=== PATIENT | male | born 1950 | race Caucasian/White ===

== ENCOUNTER 2019-10-10 13:25 | Outpatient (CLI) | payer MEDICARE, SELFPAY ==
--- NOTE | 2019-10-10 13:35 | XR_ITS ---
WS: [id number] PROCEDURE: XR chest 2V* [id number] CLINICAL INFORMATION: DYSPNEA COMPARISON: None. FINDINGS: Heart: Cardiomegaly. Lungs: Lungs are clear. No consolidation or pleural fluid. Moderate chronic emphysematous changes. Bones: Mild thoracic kyphosis. Hypertrophic changes thoracic spine. XR/XR chest 2V* [id number] IMPRESSION: Cardiomegaly. No acute infiltrates.
== END 2019-10-10 13:26 | disposition home or self-care (01) ==
PROVIDERS: Family Provider Nurse Practitioner Family; PCP Family Medicine; Visit Provider Nurse Practitioner Family
DX: R06.00 Dyspnea, unspecified (principal); I51.7 Cardiomegaly
CPT/HCPCS: 71046

== ENCOUNTER 2019-10-11 09:15 | Observation (INO) | payer MEDICARE, SELFPAY ==
[2019-10-11] VITALS (10 sets, daily range): BP systolic 114–157; BP diastolic 60–79; PULSE 58–80; RESP 16–24; TEMP 36.4–36.9; O2SAT 93–98; BMI 43.7
--- NOTE | 2019-10-11 09:41 | ECG_ITS ---
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 Measurements Intervals [place] Rate: 65 P: 6 RI: 181 QRS: 67 QRSD: 105 T: 73 QT: 439 QTc: 458 Interpretive Statements SINUS RHYTHM No previous ECG available for comparison Generalized reality repolarization changes Electronically Signed On 10-11-2019 20:32:04 CDT by Jan Jensen M.D. [id number]
--- NOTE | 2019-10-11 09:42 | XR_ITS ---
WS: [id number] PORTABLE CHEST HISTORY: dyspnea/cough COMPARISON: 10/10/2019 Lungs are clear and well expanded. No pleural effusion or pneumothorax. Cardiac size: Normal. Mediastinum/Aorta: Normal mediastinum. No osseous abnormality seen. XR/XR chest 1V portable [id number] IMPRESSION: Unremarkable portable chest.
[2019-10-11 09:54] LABS: Basophils % 0.5 %; Eosinophils # 0.2 10^3/uL (0.0-0.8); Eosinophils % 2.5 %; Hematocrit 31.3 % (42.0-52.0); Hemoglobin 11.5 g/dL (11.7-16.6); Lymphocytes # 0.7 10^3/uL (0.8-4.8); Lymphocytes % 10.8 %; Mean Corpuscular HGB Conc 36.7 g/dL (30.0-36.0); Mean Corpuscular Hemoglobin 34.1 pg (28.0-34.0); Mean Corpuscular Volume 92.9 fL (80-94); Mean Platelet Volume 8.4 fL (7.4-10.4); Monocytes # 0.7 10^3/uL (0.2-0.9); Monocytes % 11.1 %; Neutrophils # 4.68 10^3/uL (1.8-7.7); Neutrophils % 74.6 %; Nucleated Red Blood Cells % 0 %; Platelet Count 238 10^3/cmm (130-400); Red Blood Count 3.37 10^6/uL (4.1-5.3); Red Cell Distribution Width 11.8 % (12.1-15.1); White Blood Count 6.3 10^3/uL (4.0-10.0)
[2019-10-11 10:14] LABS: Troponin(5th) Baseline 22 ng/L (0-15)
[2019-10-11 10:17] LABS: Alanine Aminotransferase 29 U/L (0-41); Albumin Level 4.2 g/dL (3.5-5.2); Alkaline Phosphatase 84 IU/L (40-130); Anion Gap 14.5 (5-19); Aspartate Amino Transferase 23 U/L (0-40); Blood Urea Nitrogen 10 mg/dL (8-23); Calcium 9.5 mg/dL (8.5-10.5); Carbon Dioxide 27 mmol/L (22-29); Chloride 81 mmol/L (98-107); Globulin 2.9 g/dL (1.3-4.6); Glomerular Filtration Rate 112.8 mL/min (90-130); Glucose 127 mg/dL (65-115); NT Pro B Type Natriuretic Pept 162 pg/mL (0-125); Osmolality Calculated 246 mOsm/kg (285-295); Potassium 3.5 mmol/L (3.5-5.1); Total Protein 7.1 g/dL (6.6-8.7)
[2019-10-11 10:30] LABS: Sodium 119 mmol/L (136-145)
--- NOTE | 2019-10-11 11:23 | ED_ITS ---
HPI - Recheck/Abnormal Lab/Rx General: Chief Complaint: Recheck/Abnormal Lab/Rx Stated Complaint: abnormal labs-sent by PCP Time Seen by Provider: 10/11/19 09:40 History of Present Illness: HPI narrative: 68-year-old male directed to the emergency room with a complaint of abnormal lab he had a low sodium results at his doctor's office and they sent him to the emergency room to be evaluated. He did state he has mild chest discomfort he was walking some stairs a few days ago but it resolved after 3 to 4 minutes has not had any recurrence and is not have any chest pain now. About 10 or 12 years ago he had a stress test. He is not having any shortness of breath at this time. He is solely here for recheck on sodium. complaint: abnormal lab Initial visit (ago): day(s) Initial visit for: other (Routine labs) Returns today for: called because of abnormal lab/test Description of abnormal result: Hyponatremia Symptoms since prior visit: no new symptoms Context: called for abnormal lab result Associated symptoms: none Review of Systems Const: Denies: fever(s), chills, body aches, change in appetite, fatigue or malaise ENMT: Denies: throat pain, ear or mastoid pain, nasal discharge or nasal congestion Card: Denies: chest pain, edema, dyspnea on exertion or orthopnea Resp: Denies: dyspnea, productive cough or non-productive cough GI: Denies: abdominal pain, nausea, vomiting, hematemesis, coffee ground emesis, diarrhea, constipation, bloating, hematochezia or melena : Denies: flank pain, dysuria, urinary frequency or urinary urgency Skin/Breast: Denies: rash or pruritus PFSH ED PFSH: Medical History (Updated 10/11/19 @ 13:40 by Philip Tejada DO) BPH (benign prostatic hyperplasia) Erectile dysfunction due to diseases classified elsewhere Hypertension Type 2 diabetes mellitus Surgical History H/O carpal tunnel repair H/O hernia repair H/O knee surgery S/P appendectomy S/P routine circumcision Family History Family/Other Hypertension Psychiatric illness Mother , 93 No problems noted. Social History Smoking and tobacco status: never smoked Alcohol intake: never Substance/Drug Use: never Marital status: Single Physical Exam Const: COMMON NORMALS: no acute distress GENERAL APPEARANCE: cooperative and comfortable ORIENTATION/CONSCIOUSNESS: Yes awake, Yes oriented to person, Yes oriented to place and Yes oriented to time HENMT: COMMON NORMALS: normocephalic, atraumatic and hearing grossly normal bilaterally HEAD & SCALP: normocephalic and atraumatic Eye: COMMON NORMALS: Equal, round and reactive pupils present, EOMs intact bilaterally, conjunctivae normal and no scleral icterus CONJUNCTIVA: Yes conjunctivae normal PUPIL: Yes Equal, round and reactive pupils present Neck/C-Spine: COMMON NORMALS: full ROM, no lymphadenopathy, supple and no JVD Lymph: LYMPHATIC: no lymphadenopathy noted and no lymphedema noted Resp: COMMON NORMALS: normal respiratory effort, No retractions, No use of accessory muscles and clear to auscultation bilaterally AUSCULTATION: clear to auscultation bilaterally Cardio: COMMON NORMALS: no JVD, regular rate, regular rhythm and No murmurs present (Cardio) RATE: regular rate RHYTHM: regular rhythm GI: COMMON NORMALS: Soft to palpation and No hepatosplenomegaly present AUSCULTATION: Yes normoactive bowel sounds PALPATION: Yes Soft to palpation, No Tenderness to palpation present (GI), No Guarding due to palpation present (GI) and Yes No hepatosplenomegaly present Extremity: COMMON NORMALS: normal to inspection, capillary refill normal, no clubbing, cyanosis or edema, no calf tenderness and no pedal edema Neuro: SENSORIUM/ORIENTATION: Yes oriented to person, Yes oriented to place and Yes oriented to time Skin: COMMON NORMALS: no rashes or lesions noted GENERAL SKIN EXAM: no rashes or lesions noted Course Vital Signs: Vital signs: Vital Signs Temperature 98.2 F 10/11/19 09:34 Pulse Rate 80 10/11/19 09:34 Respiratory Rate 18 10/11/19 09:34 Blood Pressure 131/76 10/11/19 09:34 Pulse Oximetry 94 10/11/19 09:34 MDM - Recheck/Abnormal Lab/Rx Lab Data: Labs: Lab Results 07/22/20 07/22/20 07/22/20 Range/Units 09:48 09:48 09:48 WBC 6.3 (4.0-10.0) 10^3/ uL RBC 3.37 L (4.1-5.3) 10^6/u L Hgb 11.5 L (11.7-16.6) g/dL Hct 31.3 L (42.0-52.0) % MCV 92.9 (80-94) fL MCH 34.1 H (28.0-34.0) pg MCHC 36.7 H (30.0-36.0) g/dL RDW 11.8 L (12.1-15.1) % Plt Count 238 (130-400) 10^3/c mm MPV 8.4 (7.4-10.4) fL Neut % (Auto) 74.6 % Lymph % (Auto) 10.8 % [place] % (Auto) 11.1 % Eos % (Auto) 2.5 % Baso % (Auto) 0.5 % Neut # (Auto) 4.68 (1.8-7.7) 10^3/u L Lymph # (Auto) 0.7 L (0.8-4.8) 10^3/u L [place] # (Auto) 0.7 (0.2-0.9) 10^3/u L Eos # (Auto) 0.2 (0.0-0.8) 10^3/u L Baso # (Auto) 0.0 (0.0-0.1) 10^3/u L Nucleated RBC % (a uto) 0 % Nucleated RBCs # 0.0 /100WBC Sodium 119 L* (136-145) mmol/L Potassium 3.5 (3.5-5.1) mmol/L Chloride 81 L (98-107) mmol/L Carbon Dioxide 27 (22-29) mmol/L Anion Gap 14.5 (5-19) BUN 10 (8-23) mg/dL Creatinine 0.7 (0.7-1.2) mg/dL GFR Calculation 112.8 (90-130) mL/min Glucose 127 H (65-115) mg/dL Calculated Osmolal ity 246 L (285-295) mOsm/k g Calcium 9.5 (8.5-10.5) mg/dL Total Bilirubin 1.0 (0.15-1.2) mg/dL AST 23 (0-40) U/L ALT 29 (0-41) U/L Alkaline Phosphata se 84 (40-130) IU/L Troponin T Baselin e 22 H (0-15) ng/L Troponin T 120 Min [place] (0-15) ng/L Delta Troponin T (0-10) ABS# NT-Pro-B Natriuret Pep 162 H (0-125) pg/mL Total Protein 7.1 (6.6-8.7) g/dL Albumin 4.2 (3.5-5.2) g/dL Globulin 2.9 (1.3-4.6) g/dL 10/11/19 Range/Units 11:33 WBC (4.0-10.0) 10^3/ uL RBC (4.1-5.3) 10^6/u L Hgb (11.7-16.6) g/dL Hct (42.0-52.0) % MCV (80-94) fL MCH (28.0-34.0) pg MCHC (30.0-36.0) g/dL RDW (12.1-15.1) % Plt Count (130-400) 10^3/c mm MPV (7.4-10.4) fL Neut % (Auto) % Lymph % (Auto) % [place] % (Auto) % Eos % (Auto) % Baso % (Auto) % Neut # (Auto) (1.8-7.7) 10^3/u L Lymph # (Auto) (0.8-4.8) 10^3/u L [place] # (Auto) (0.2-0.9) 10^3/u L Eos # (Auto) (0.0-0.8) 10^3/u L Baso # (Auto) (0.0-0.1) 10^3/u L Nucleated RBC % (a uto) % Nucleated RBCs # /100WBC Sodium (136-145) mmol/L Potassium (3.5-5.1) mmol/L Chloride (98-107) mmol/L Carbon Dioxide (22-29) mmol/L Anion Gap (5-19) BUN (8-23) mg/dL Creatinine (0.7-1.2) mg/dL GFR Calculation (90-130) mL/min Glucose (65-115) mg/dL Calculated Osmolal ity (285-295) mOsm/k g Calcium (8.5-10.5) mg/dL Total Bilirubin (0.15-1.2) mg/dL AST (0-40) U/L ALT (0-41) U/L Alkaline Phosphata se (40-130) IU/L Troponin T Baselin e (0-15) ng/L Troponin T 120 Min [place] 22.35 H (0-15) ng/L Delta Troponin T 0.35 (0-10) ABS# NT-Pro-B Natriuret Pep (0-125) pg/mL Total Protein (6.6-8.7) g/dL Albumin (3.5-5.2) g/dL Globulin (1.3-4.6) g/dL Discharge Plan Discharge Patient Disposition: Placed in Observation Admit Provider: Shira Mcdaniel Clinical Impression: Hyponatremia, Type 2 diabetes mellitus, Hypertension Condition: Stable Coding Level of Care Code ED Lockstitch Front Edge Tape Sewer for Kelly Walker
--- NOTE | 2019-10-11 11:41 | ECG_ITS ---
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 Measurements Intervals [place] Rate: 64 P: -9 [place]: 170 QRS: 64 QRSD: 107 T: 68 QT: 431 QTc: 445 Interpretive Statements SINUS RHYTHM Compared to ECG 10/11/2019 11:04:34 No significant changes Diffuse early repolarization change Electronically Signed On 10-11-2019 20:38:41 CDT by Jan Jensen M.D. [id number]
[2019-10-11 11:57] LABS: Troponin 5 2HR 22.35 ng/L (0-15); Troponin 5 2HR Delta 0.35 ABS# (0-10)
--- NOTE | 2019-10-11 12:49 | P.HP_ITS ---
Providers/Chief Complaint Admitting Physician: Shira Mcdaniel DO Primary Care Provider: Nimo Gamboa MD Chief Complaint: low sodium History of Present Illness Noah Muller is a 68 year old male with a past medical history of hypertension, hyperlipidemia and diabetes and obstructive sleep apnea that presented to the emergency department today due to having abnormal labs. He reported that he was seen and evaluated by his doctor's office yesterday had labs performed at that time due to abnormalities he was sent to the ER today. Patient reports that he recently had increase in his antihypertensive, reported that his triamterene/HCTZ was increased to 2 tablets twice daily. He stated that he has been under treatment for [place] spotted tick fever he states that he has been on doxycycline for 2 weeks, now developed diarrhea and is been started on a probiotic. Patient reports that he feels like he has been in somewhat of a fog not quite as sharp as normal but denies any other neurologic symptoms. Patient was seen and evaluated in the emergency department noted to have severe hyponatremia and admitted for further evaluation and treatment. Review of Systems Const: Denies: fever(s) or chills Eyes: Denies: change in vision ENMT: Denies: nasal congestion Card: Reports: edema (Chronic); Denies: chest pain or palpitations Resp: Denies: dyspnea, productive cough or hemoptysis GI: Reports: diarrhea; Denies: abdominal pain, nausea, vomiting, constipation, hematochezia or melena : Denies: dysuria or hematuria Musc: Denies: extremity pain or muscle cramps Skin/Breast: Denies: rash or new lesions Neuro: Reports: other ( mental fog ); Denies: headache(s) or dizziness Psych: Denies: anxiety or depression Endo: Denies: polyuria or hot flashes [place]/Lymph: Denies: easy bruising or easy bleeding Medications/Allergies Home Medications Medication Instructions Recorded Confirmed Last Taken Type carvedilol 25 mg PO BID 10/11/19 10/11/19 10/11/19 History losartan 100 mg PO DAILY 10/11/19 10/11/19 10/11/19 History pantoprazole 40 mg PO DAILY 10/11/19 10/11/19 10/11/19 History rosuvastatin [Crestor] 10 mg PO DAILY 10/11/19 10/11/19 10/11/19 History triamterene-hydrochlorothiazid 1 tab PO DAILY 10/11/19 10/11/19 10/11/19 History Allergies Allergy/AdvReac Type Severity Reaction Status Date / Time Sulfa (Sulfonamide Allergy NA Verified 05/30/19 10:25 Antibiotics) PFSH Acute PFSH: Medical History BPH (benign prostatic hyperplasia) Erectile dysfunction due to diseases classified elsewhere Type 2 diabetes mellitus Surgical History H/O carpal tunnel repair H/O hernia repair H/O knee surgery S/P appendectomy S/P routine circumcision Family History Family/Other Hypertension Psychiatric illness Mother , 93 No problems noted. Social History Smoking and tobacco status: never smoked Alcohol intake: never Substance/Drug Use: never Marital status: Single Vitals/I&O/Wt Last Vital Signs Temp 98.2 F 10/11/19 09:34 Pulse 80 10/11/19 09:34 Resp 18 10/11/19 09:34 BP 131/76 10/11/19 09:34 Pulse Ox 94 10/11/19 09:34 Weight last 48 hrs Weight 126.552 kg Physical Exam Const: COMMON NORMALS: patient oriented x3 and alert GENERAL APPEARANCE: cooperative ORIENTATION/CONSCIOUSNESS: Yes awake, Yes oriented to person, Yes oriented to place and Yes oriented to time HENMT: COMMON NORMALS: normocephalic and atraumatic HEAD & SCALP: normocephalic and atraumatic Eye: COMMON NORMALS: Equal, round and reactive pupils present PUPIL: Yes Equal, round and reactive pupils present Neck/C-Spine: COMMON NORMALS: supple GENERAL: Yes normal visual inspection Resp: COMMON NORMALS: normal respiratory effort and clear to auscultation bilaterally EFFORT & INSPECTION: Yes able to speak in complete sentences AUSCULTATION: clear to auscultation bilaterally, no rhonchi and no wheezes Cardio: COMMON NORMALS: regular rate, regular rhythm and No murmurs present (Cardio) RATE: regular rate RHYTHM: regular rhythm GI: COMMON NORMALS: Soft to palpation and non-tender INSPECTION: No abdominal distension AUSCULTATION: Yes normoactive bowel sounds PALPATION: Yes Soft to palpation Extremity: COMMON NORMALS: no calf tenderness NARRATIVE EXTREMITY EXAM: Chronic edema in the lower extremities bilaterally, bilateral stockings in place Neuro: COMMON NORMALS: patient oriented x3, CN's II-XII intact bilaterally, moves all extremities and no focal motor deficits SENSORIUM/ORIENTATION: Yes alert, Yes oriented to person, Yes oriented to place and Yes oriented to time SPEECH: speech normal Psych: COMMON NORMALS: mental status grossly normal and cooperative Skin: COMMON NORMALS: no rashes or lesions noted OTHER: Dry skin in the lower extremities bilaterally Data : 10/11/19 09:48 10/11/19 09:48 CXR: I personally reviewed and interpreted this imaging study as follows: My impression: No acute cardiopulmonary process A&P Assessment and plan (1) Hyponatremia: Hyponatremia that is believed to be secondary to dehydration as well as medication induced We will continue with serial neurologic checks Serial sodium checks with slow correction We will hold on hydrochlorothiazide Monitor blood pressure closely and addition of other antihypertensives as needed Gentle IV fluids Status: Acute (2) Hypertension: Continue on losartan and Coreg, discontinue triamterene/HCTZ Blood pressure low at this time, systolic of 103, patient may not require ad ditional blood pressure medication but will continue close monitoring Status: Acute Additional A&P Information Diabetes mellitus: Diet controlled, low-dose sliding scale insulin as needed Chronic lower extremity edema: Continue with stockings bilaterally GERD: Continue Protonix Hyperlipidemia: Continue home statin DVT prophylaxis: lovenox Diet: Carb consistent Code status: Full code Attestations Medical Necessity Statement*: Observation due to concern for hyponatremia, expected stay less than 2 midnights Coding Level of Care Code Acute [place] Specialty Worker for [facility] [place] Diagnoses Hyponatremia E87.1 Hypertension I10
[2019-10-11] MEDS: sodium chloride 0.45% 1,000 ML 50 ML IV (15:17)
[2019-10-11] MEDS: enoxaparin 40 mg/0.4 mL Syringe SUBCUT (15:17)
--- NOTE | 2019-10-11 15:41 | ECG_ITS ---
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 Measurements Intervals [place] Rate: 59 P: 35 [place]: 192 QRS: 66 QRSD: 110 T: 72 QT: 460 QTc: 456 Interpretive Statements SINUS BRADYCARDIA Compared to ECG 10/11/2019 12:13:53 Sinus rhythm no longer present Diffuse early repolarization changes Electronically Signed On 10-11-2019 20:41:03 CDT by Jan Jensen M.D. [id number]
[2019-10-11 16:08] LABS: Glucose Point of Care 91 mg/dL (70-110)
[2019-10-11 16:11] LABS: Troponin 5 6HR 20.48 ng/L (0-15)
[2019-10-11 16:24] LABS: Troponin 5 6HR Delta -1.52 ng/L (0-12)
[2019-10-11 16:53] LABS: Magnesium 1.4 mg/dL (1.7-2.3); Phosphorus 3.7 mg/dL (2.5-4.5); Thyroid Stimulating Hormone 2.45 uIU/mL (0.27-4.20)
[2019-10-11 17:00] LABS: Sodium 118 mmol/L (136-145)
[2019-10-11] MEDS: lactobacillus 1 Tablet 1 TAB PO ×2 (17:04→20:47)
[2019-10-11] MEDS: carvedilol 25 mg Tablet PO (17:04)
[2019-10-11 17:19] LABS: Add Urine Microscopic? NO
[2019-10-11 17:32] LABS: Urine Appearance Clear (CLEAR); Urine Color Yellow (Yellow)
[2019-10-11 17:33] LABS: pH Urine 8 (5-7)
[2019-10-11 17:34] LABS: Bilirubin Urine Neg (NEGATIVE); Blood Urine Neg (Negative); Glucose Urine UA Norm (Normal); Ketones Urine Negative (Negative); Leukocyte Esterase Urine Negative (Negative); Nitrate Urine Negative (Negative); Protein Urine Neg (Negative); Urobilinogen Urine Neg (Negative)
[2019-10-11 19:40] LABS: Sodium 117 mmol/L (136-145)
[2019-10-11 20:47] LABS: Glucose Point of Care 125 mg/dL (70-110)
[2019-10-11 23:54] LABS: Sodium 116 mmol/L (136-145)
[2019-10-12] VITALS: BP 114/60; PULSE 58; RESP 20; TEMP 36.4
[2019-10-12] MEDS: sodium chloride 1 gm Tablet PO (00:12)
[2019-10-12] MEDS: sodium chloride 0.9% 1,000 ML 30 ML IV (00:12)
[2019-10-12 02:44] LABS: Basophils % 0.3 %; Eosinophils # 0.2 10^3/uL (0.0-0.8); Eosinophils % 2.7 %; Hematocrit 29.7 % (42.0-52.0); Hemoglobin 10.6 g/dL (11.7-16.6); Lymphocytes # 0.9 10^3/uL (0.8-4.8); Lymphocytes % 13.6 %; Mean Corpuscular HGB Conc 35.7 g/dL (30.0-36.0); Mean Corpuscular Hemoglobin 32.7 pg (28.0-34.0); Mean Corpuscular Volume 91.7 fL (80-94); Mean Platelet Volume 8.3 fL (7.4-10.4); Monocytes % 15.2 %; Neutrophils # 4.33 10^3/uL (1.8-7.7); Neutrophils % 67.9 %; Nucleated Red Blood Cells % 0 %; Platelet Count 229 10^3/cmm (130-400); Red Blood Count 3.24 10^6/uL (4.1-5.3); Red Cell Distribution Width 11.9 % (12.1-15.1); White Blood Count 6.4 10^3/uL (4.0-10.0)
[2019-10-12 03:04] LABS: Anion Gap 11.3 (5-19); Blood Urea Nitrogen 10 mg/dL (8-23); Calcium 8.5 mg/dL (8.5-10.5); Carbon Dioxide 28 mmol/L (22-29); Chloride 83 mmol/L (98-107); Glomerular Filtration Rate 96.7 mL/min (90-130); Glucose 115 mg/dL (65-115); Osmolality Calculated 245 mOsm/kg (285-295); Potassium 3.3 mmol/L (3.5-5.1)
[2019-10-12 03:08] LABS: Sodium 119 mmol/L (136-145)
[2019-10-12] MEDS: potassium chloride ER 10 mEq Tablet 40 MEQ PO (03:39)
[2019-10-12 04:00] VITALS: BP 126/70; PULSE 60; RESP 20; TEMP 36.4; O2SAT 97
[2019-10-12 06:33] LABS: Glucose Point of Care 106 mg/dL (70-110)
[2019-10-12 07:35] VITALS: BP 137/75; PULSE 59; RESP 18; TEMP 37.3; O2SAT 96
[2019-10-12 09:20] LABS: Magnesium 1.8 mg/dL (1.7-2.3)
[2019-10-12] MEDS: lactobacillus 1 Tablet 1 TAB PO ×2 (10:00→12:51)
[2019-10-12] MEDS: atorvastatin 40 mg Tablet PO (10:01)
[2019-10-12] MEDS: losartan 50 mg Tablet 100 MG PO (10:02)
[2019-10-12] MEDS: pantoprazole DR 40 mg Tablet PO (10:02)
[2019-10-12] MEDS: carvedilol 25 mg Tablet PO (10:02)
--- NOTE | 2019-10-12 10:40 | PC.CHAP ---
Pastoral Care Encounter/Spiritual Assessment Type of Contact [] Declined electronic induction hardener visit [] Patient/Family/Request visit [] Outpatient visit [] Follow-up visit [] Physician referral [] Code/Alert [x] Routine visit [] Staff referral [] Actively dying [] Patient sleeping [] Family support [] [] Out of room [] Palliative care [] [] Receiving care in room [] Pre-surgical visit [] Trauma [] Long length of stay [] ICU visit [] Other: Relational/Emotional Strength [x] Patient feels connected with others/family/visitors/staff [] Distress [] Loneliness/isolation [] Abandonment Spirituality of Patient [x] Person of Eliza [x] Attends Gnosticism of their Eliza [x] Believes in Prayer [] Reads Bible or Yarsanism materials [] There are Spiritual issues to be addressed Business Banking Representative Interventions [x] Prayer [x] Active listening [x] Non-anxious presence [x] Spiritual/emotional support [] Crisis/trauma care [] Spiritual counseling [] Bereavement support [] Provided bereavement packet [] Provided Bible/devotional materials [] Provided toy/stuffed animal, coloring book to patient or family member [] Provided Communion [] Anointing/[place] [] Salvation [x] Completed spiritual assessment [] Other: Impact on Illness or Injury [] Angry [] Fearful [] Anxious [] Often cries [] Exhaustion [] Unable to work [] Unable to attend evangelical [] Unable to walk/stand [] Unable to read [] Unable to drive [] Unable to eat/drink [] Unable to sleep [] Unable to be with family [] Patient intubated [x] Other: Summary Patient professed his eliza in [place]. Time spent with patient 10 minutes
[2019-10-12 11:20] VITALS: BP 146/74; PULSE 66; RESP 18; TEMP 36.5; O2SAT 94
[2019-10-12 11:25] LABS: Glucose Point of Care 116 mg/dL (70-110)
[2019-10-12 11:26] LABS: Anion Gap 10.7 (5-19); Blood Urea Nitrogen 10 mg/dL (8-23); Calcium 9.1 mg/dL (8.5-10.5); Carbon Dioxide 27 mmol/L (22-29); Chloride 86 mmol/L (98-107); Glomerular Filtration Rate 112.8 mL/min (90-130); Glucose 123 mg/dL (65-115); Osmolality Calculated 247 mOsm/kg (285-295); Potassium 3.7 mmol/L (3.5-5.1); Sodium 120 mmol/L (136-145)
--- NOTE | 2019-10-12 12:51 | PM.DCS ---
Discharge Providers Date of Admission: 10/11/19 12:20 Date of Discharge: October 12, 2019 Attending Provider at Admission: Shira Mcdaniel DO Attending Provider at Discharge: Shira Mcdaniel DO Primary Care Provider: Nimo Gamboa MD Diagnoses at Discharge Discharge Diagnosis (1) Hyponatremia: Status: Acute (2) Hypertension: Status: Acute Reason for Visit Reason for Visit: low sodium Hospital Course Hospital Course: Patient was seen and evaluated in the emergency department after being sent from his primary care provider's office due to low sodium on labs the day prior. Patient reports that he was recently diagnosed with tick fever and has been on doxycycline. He stated that he is been on blood pressure medication and had some recent adjustments in his Coreg. He stated that he has been on triamterene HCTZ and noted that he had a low sodium in the past. Feeling somewhat foggy and having a headache. He was seen and evaluated in the emergency department noted to have hyponatremia, likely secondary to hydrochlorothiazide. He was admitted on observation given IV fluids and his hydrochlorothiazide was held. Patient had slow improvement of sodium due to IV infiltration but once IV fluids were given and sodium was held sodium continued to improve. Patient reported that he did not have any neurologic symptoms he felt back to his baseline and was feeling well requesting discharge to home. Discussed with patient plan for discharge to home with close follow-up with primary care provider early next week on Wednesday or Wednesday for recheck labs, BMP at that time. Discussed with patient to discontinue hydrochlorothiazide and continue to ensure proper hydration at home. Patient verbalized understanding and agreed with plan. He denied any headache, no vision changes, no numbness or tingling, stated his mentation was at baseline and back to normal, denied any fogginess Physical Exam Const: COMMON NORMALS: patient oriented x3 and alert GENERAL APPEARANCE: cooperative ORIENTATION/CONSCIOUSNESS: Yes awake, Yes oriented to person, Yes oriented to place and Yes oriented to time HENMT: COMMON NORMALS: normocephalic and atraumatic HEAD & SCALP: normocephalic and atraumatic Eye: COMMON NORMALS: Equal, round and reactive pupils present PUPIL: Yes Equal, round and reactive pupils present Neck/C-Spine: COMMON NORMALS: supple GENERAL: Yes normal visual inspection Resp: COMMON NORMALS: normal respiratory effort and clear to auscultation bilaterally EFFORT & INSPECTION: Yes able to speak in complete sentences AUSCULTATION: clear to auscultation bilaterally, no rhonchi and no wheezes Cardio: COMMON NORMALS: regular rate, regular rhythm and No murmurs present (Cardio) RATE: regular rate RHYTHM: regular rhythm GI: COMMON NORMALS: Soft to palpation and non-tender INSPECTION: No abdominal distension AUSCULTATION: Yes normoactive bowel sounds PALPATION: Yes Soft to palpation Extremity: COMMON NORMALS: no calf tenderness NARRATIVE EXTREMITY EXAM: Chronic edema in the lower extremities bilaterally, bilateral stockings in place Neuro: COMMON NORMALS: patient oriented x3, CN's II-XII intact bilaterally, moves all extremities and no focal motor deficits SENSORIUM/ORIENTATION: Yes alert, Yes oriented to person, Yes oriented to place and Yes oriented to time SPEECH: speech normal Psych: COMMON NORMALS: mental status grossly normal and cooperative Skin: COMMON NORMALS: no rashes or lesions noted GENERAL SKIN EXAM: no rashes or lesions noted OTHER: Dry skin in the lower extremities bilaterally Discharge Data Data Completed and Pending: Completed Studies During Hospitalization Category Date Time Status XR chest 1V minor ble [id number] Stat Exams 10/11/19 09:42 Completed Pending at discharge Category Date Time Status Basic Metabolic P benji AM LABS Lab 10/13/19 04:00 Ordered Basic Metabolic P benji AM LABS Lab 10/14/19 04:00 Ordered Clostridioides Di fficile PCR Routin e Lab 10/11/19 19:45 Results Complete Blood Co unt w/Auto AM LABS Lab 10/13/19 04:00 Ordered Complete Blood Co unt w/Auto AM LABS Lab 10/14/19 04:00 Ordered Enteric Bacterial Panel by PCR Rout ine Lab 10/11/19 19:45 Results Enteric Parasite Panel by PCR Routi ne Lab 10/11/19 19:45 Results Immunochemical Fe fracisco OCB Routine Lab 10/11/19 19:45 Results Lactoferrin Routi ne Lab 10/11/19 19:45 Results Labs from last 24 hours 10/12/19 10/12/19 10/12/19 11:17 10:57 10:35 WBC RBC Hgb Hct MCV MCH MCHC RDW Plt Count MPV Neut % (Auto) Lymph % (Auto) [place] % (Auto) Eos % (Auto) Baso % (Auto) Neut # (Auto) Lymph # (Auto) [place] # (Auto) Eos # (Auto) Baso # (Auto) Nucleated RBC % (a uto) Nucleated RBCs # Sodium 120 L Cancelled Potassium 3.7 Cancelled Chloride 86 L Cancelled Carbon Dioxide 27 Cancelled Anion Gap 10.7 Cancelled BUN 10 Cancelled Creatinine 0.7 Cancelled GFR Calculation 112.8 Cancelled Glucose 123 H Cancelled POC Glucose 116 Calculated Osmolal ity 247 L Cancelled Calcium 9.1 Cancelled Phosphorus Magnesium Troponin T Hi Sens 6Hr Troponin T Hi Sens 6Hr Delta TSH Urine Color Urine Appearance Urine pH Ur Specific Gravit y Urine Protein Urine Glucose (UA) Urine Ketones Urine Blood Urine Nitrate Urine Bilirubin Urine Urobilinogen Ur Leukocyte Susanne ase 10/12/19 10/12/19 10/12/19 06:03 03:25 02:35 WBC RBC Hgb Hct MCV MCH MCHC RDW Plt Count MPV Neut % (Auto) Lymph % (Auto) [place] % (Auto) Eos % (Auto) Baso % (Auto) Neut # (Auto) Lymph # (Auto) [place] # (Auto) Eos # (Auto) Baso # (Auto) Nucleated RBC % (a uto) Nucleated RBCs # Sodium 119 L* Potassium 3.3 L Chloride 83 L Carbon Dioxide 28 Anion Gap 11.3 BUN 10 Creatinine 0.8 GFR Calculation 96.7 Glucose 115 POC Glucose 106 Calculated Osmolal ity 245 L Calcium 8.5 Phosphorus Magnesium 1.8 Troponin T Hi Sens 6Hr Troponin T Hi Sens 6Hr Delta TSH Urine Color Urine Appearance Urine pH Ur Specific Gravit y Urine Protein Urine Glucose (UA) Urine Ketones Urine Blood Urine Nitrate Urine Bilirubin Urine Urobilinogen Ur Leukocyte Susanne ase 10/12/19 10/12/19 10/11/19 02:35 02:35 22:50 WBC 6.4 RBC 3.24 L Hgb 10.6 L Hct 29.7 L MCV 91.7 MCH 32.7 MCHC 35.7 RDW 11.9 L Plt Count 229 MPV 8.3 Neut % (Auto) 67.9 Lymph % (Auto) 13.6 [place] % (Auto) 15.2 Eos % (Auto) 2.7 Baso % (Auto) 0.3 Neut # (Auto) 4.33 Lymph # (Auto) 0.9 [place] # (Auto) 1.0 H Eos # (Auto) 0.2 Baso # (Auto) 0.0 Nucleated RBC % (a uto) 0 Nucleated RBCs # 0.0 Sodium Cancelled 116 L* Potassium Chloride Carbon Dioxide Anion Gap BUN Creatinine GFR Calculation Glucose POC Glucose Calculated Osmolal ity Calcium Phosphorus Magnesium Troponin T Hi Sens 6Hr Troponin T Hi Sens 6Hr Delta TSH Urine Color Urine Appearance Urine pH Ur Specific Gravit y Urine Protein Urine Glucose (UA) Urine Ketones Urine Blood Urine Nitrate Urine Bilirubin Urine Urobilinogen Ur Leukocyte Susanne ase 10/11/19 10/11/19 10/11/19 20:29 18:35 17:06 WBC RBC Hgb Hct MCV MCH MCHC RDW Plt Count MPV Neut % (Auto) Lymph % (Auto) [place] % (Auto) Eos % (Auto) Baso % (Auto) Neut # (Auto) Lymph # (Auto) [place] # (Auto) Eos # (Auto) Baso # (Auto) Nucleated RBC % (a uto) Nucleated RBCs # Sodium 117 L* Potassium Chloride Carbon Dioxide Anion Gap BUN Creatinine GFR Calculation Glucose POC Glucose 125 Calculated Osmolal ity Calcium Phosphorus Magnesium Troponin T Hi Sens 6Hr Troponin T Hi Sens 6Hr Delta TSH Urine Color Yellow Urine Appearance Clear Urine pH 8 H Ur Specific Gravit y 1.010 Urine Protein Neg Urine Glucose (UA) Norm Urine Ketones Negative Urine Blood Neg Urine Nitrate Negative Urine Bilirubin Neg Urine Urobilinogen Neg Ur Leukocyte Susanne ase Negative 10/11/19 10/11/19 10/11/19 15:55 15:10 15:10 WBC RBC Hgb Hct MCV MCH MCHC RDW Plt Count MPV Neut % (Auto) Lymph % (Auto) [place] % (Auto) Eos % (Auto) Baso % (Auto) Neut # (Auto) Lymph # (Auto) [place] # (Auto) Eos # (Auto) Baso # (Auto) Nucleated RBC % (a uto) Nucleated RBCs # Sodium 118 L* Potassium Chloride Carbon Dioxide Anion Gap BUN Creatinine GFR Calculation Glucose POC Glucose 91 Calculated Osmolal ity Calcium Phosphorus 3.7 Magnesium 1.4 L Troponin T Hi Sens 6Hr 20.48 H Troponin T Hi Sens 6Hr Delta -1.52 L TSH 2.45 Urine Color Urine Appearance Urine pH Ur Specific Gravit y Urine Protein Urine Glucose (UA) Urine Ketones Urine Blood Urine Nitrate Urine Bilirubin Urine Urobilinogen Ur Leukocyte Susanne ase Vitals: Last Vital Signs Temp 97.7 F 10/12/19 11:20 Pulse 66 10/12/19 11:20 Resp 18 10/12/19 11:20 BP 146/74 10/12/19 11:20 Pulse Ox 94 10/12/19 11:20 Discharge Plan Discharge Patient Disposition: Home Condition: Stable Prescriptions: Continued carvedilol 12.5 mg Tablet 25 mg PO BID RF: 0 pantoprazole 40 mg Tablet,Delayed Release (Dr/Ec) 40 mg PO DAILY RF: 0 losartan 100 mg Tablet 100 mg PO DAILY RF: 0 Crestor 10 mg Tablet 10 mg PO DAILY RF: 0 Discontinued triamterene-hydrochlorothiazid 37.5-25 mg Tablet 1 tab PO DAILY RF: 0 Discharge Orders: Discharge Order (Routine); Ordered 10/12/19 Ordered By: Shira Mcdaniel Referrals: Nimo Gamboa MD [Primary Care Provider] - 1-3 days (Recheck BMP on Wednesday) Discharge Diet: Usual diet and Low Fat Discharge Activity: Increase activity as tolerated Activity Restrictions/Additional Instructions: You were admitted to the hospital due to concern for low sodium, hyponatremia. This is believed to be due to medication. Medication adjustments are as follows, discontinue triamterene/hydrochlorothiazide. Hydrochlorothiazide can contribute to low sodium. Continue to ensure adequate hydration. Discussed with patient to monitor oral intake and output daily. For any neurologic concerns please present to the emergency department. 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
[2019-10-12 14:38] VITALS: BP 146/74; PULSE 66; RESP 18; TEMP 36.5; O2SAT 94
== END 2019-10-12 14:38 | disposition home or self-care (01) ==
LOC: ER 12:29 → MEDSURG 13:18
PROVIDERS: Family Medicine; Admitting Provider Family Medicine; PCP Family Medicine; Visit Provider Family Medicine
DX: E87.1 Hypo-osmolality and hyponatremia (principal); I10 Essential (primary) hypertension; E78.5 Hyperlipidemia, unspecified; G47.33 Obstructive sleep apnea (adult) (pediatric); N40.0 Benign prostatic hyperplasia without lower urinary tract symptoms; E11.9 Type 2 diabetes mellitus without complications
CPT/HCPCS: 12345; 36415; 36416; 71045; 80048; 80053; 81003; 82274; 82962; 83630; 83735; 83880; 84100; 84295; 84443; 84484; 85025; 87493; 87506; 93005; 94660; 96372; 99282; 99285; G0378; J1650; J3475; J7030

== ENCOUNTER 2020-02-09 09:00 | Outpatient (CLI) | payer MEDICARE, SELFPAY ==
--- NOTE | 2020-02-09 09:30 | USCV_ITS ---
Noah Muller Age: 69 Gender: M : 1950 Exam Date: 02/09/2020 09:22 Ordering Phys: Dov Catalan M.D ([email or web address]) Technologist: Nat Cruz Exam Location: [facility] [place] Indication: hypertension BP: / HR: 85 Rhythm: Sinus Technical Quality: Adequate MEASUREMENTS (Male / Female) Normal Values 2D ECHO LV Diastolic Diameter PLAX 4.7 cm 4.2 - 5.9 / 3.9 - 5.3 cm LV Systolic Diameter PLAX 3.1 cm IVS Diastolic Thickness 1.8 cm 0.6 - 1.0 / 0.6 - 0.9 cm IVS Systolic Thickness 1.7 cm LVPW Diastolic Thickness 0.9 cm 0.6 - 1.0 / 0.6 - 0.9 cm LVPW Systolic Thickness 1.6 cm LVOT Diameter 2.1 cm LV Ejection Fraction 2D Teich 62.8 % LV Ejection Fraction MOD 2C 65.0 % LV Ejection Fraction 2C AL 67.9 % LA Diameter 3.4 cm LA Width 3.3 cm LA Height 4.5 cm RA Width 3.3 cm RA Height 5.5 cm Aorta at Sinotubular Diameter 3.2 cm M-MODE LV Diastolic Diameter MM 5.8 cm 4.2 - 5.9 / 3.9 - 5.3 cm LV Systolic Diameter MM 3.3 cm LV Ejection Fraction MM Teich 74.0 % IVS Diastolic Thickness MM 1.0 cm 0.6 - 1.0 / 0.6 - 0.9 cm IVS Systolic Thickness MM 1.5 cm LVPW Diastolic Thickness MM 0.7 cm 0.6 - 1.0 / 0.6 - 0.9 cm LVPW Systolic Thickness MM 2.6 cm Aortic Annulus Diameter 3.1 cm LA Ao Ratio MM 1.3 DOPPLER AV Peak Velocity 156.0 cm/s LVOT Peak Velocity 129.0 cm/s AV Area Cont Eq vti 2.7 cm squared AV Area Cont Eq pk 2.9 cm squared MV Peak Velocity 104.0 cm/s MV Area PHT 3.9 cm squared Mitral E to A Ratio 1.1 MV E' Velocity 51.0 cm/s Mitral E to MV E' Ratio 10.2 Mitral E to LV E' Lateral Ratio 9.5 Mitral E to LV E' Septal Ratio 11.1 TR Peak Velocity 106.3 cm/s TR Peak Gradient 4.5 mmHg Right Atrial Pressure 3.0 mmHg Pulmonary Artery Systolic Pressu 7.5 mmHg PV Peak Velocity 115.0 cm/s RV Acceleration Time 0.1 s FINDINGS Left Ventricle Normal left ventricular size and systolic function with no regional wall motion abnormalities. LVEF is 55-60%. Normal diastolic filling pattern. Right Ventricle The right ventricle is normal in size and function. Right Atrium The right atrium is normal in size. Left Atrium The left atrium is normal in size. Mitral Valve Structurally normal mitral valve without significant stenosis or prolapse. There is no mitral regurgitation. Aortic Valve Structurally normal aortic valve without significant sclerosis or stenosis. There is no aortic regurgitation. Tricuspid Valve Structurally normal tricuspid valve without significant stenosis or regurgitation. Insufficient TR jet to calculate RVSP Pulmonic Valve Structurally normal pulmonic valve without significant stenosis. There is no pulmonic regurgitation. Pericardium Normal pericardium without effusion. Aorta Normal ascending aorta dimension. CONCLUSIONS LV systolic function is normal with EF of 55-60% Diastolic function is normal No comparison studies are available Dov Catalan MD (Electronically Signed) Final Date: 19 February 2020 17:54 S
== END 2020-02-09 09:01 | disposition home or self-care (01) ==
LOC: RAD 09:07
PROVIDERS: Visit Provider Internal Medicine
DX: I10 Essential (primary) hypertension (principal)
CPT/HCPCS: 93306

== ENCOUNTER 2020-10-22 09:51 | Outpatient (CLI) | payer MEDICARE, SELFPAY ==
--- NOTE | 2020-10-22 10:05 | XR_ITS ---
WS: [id number] Left shoulder, 3 views, 10/22/2020 Clinical Data: SHOULDER JOINT PAIN Comparison: None. Findings: No fractures or dislocations are seen. The AC joint shows osteoarthritis with an inferior spur of the acromion. There is a spur of the lesser tuberosity of the left humeral head and irregularity of the inferior aspect of the left glenoid rim. The adjacent left clavicle, left scapula and ribs are normal . The soft tissues are unremarkable. XR/XR shoulder LT min 2V* [id number] Impression: 1. Osteoarthritis of the left AC joint with a inferior spur of the left acromio n. 2. Osteoarthritic change of the lesser tuberosity of the left humeral head with irregularity of the inferior aspect of the glenoid rim.
--- NOTE | 2020-10-22 10:05 | XR_ITS ---
WS: [id number] Right shoulder, 3 views, 10/22/2020 Clinical Data: SHOULDER JOINT PAIN Comparison: None. Findings: No fractures or dislocations are seen. The AC joint shows osteoarthritis. There is a small spur of th e greater tuberosity. There are calcifications overlying the lesser tuberosity which may be synovial. . The adjacent right clavicle, right scapula and ribs are normal. The soft tissues are unremarkable. XR/XR shoulder RT min 2V* [id number] Impression: 1. Minimal osteoarthritis of the greater tuberosity of the right shoulder. 2. Possible synovial calcifications adjacent to lesser tuberosity. 3. Osteoarthritis of the right AC joint.
--- NOTE | 2020-10-22 10:05 | XR_ITS ---
WS: [id number] Lumbar spine with flexion, extension, and neutral lateral, 10/22/2020 Clinical Data: LUMBAGO Comparison: None. Findings: No compression fractures or subluxation is seen. There is degenerative disc narrowing at T12-L1, L1-L 2, L2-L3 and L5-S1. There is osteoarthritic spurring of all lumbar vertebral bodies. On flexion and e xtension there is limitation of motion but no subluxation. There is calcification in the abdominal ao rta with atherosclerotic change and dilatation of 2.9 cm.. . XR/XR lumbar spine f/e only [id number] Impression: 1. Degenerative disc narrowing at multiple levels and osteoarthritis of all the lumbar vertebral bodies. 2. Limitation of motion on flexion and extension but no subluxation. 3. Atherosclerotic dilatation of the abdominal aorta to 2.9 cm.
--- NOTE | 2020-10-22 10:06 | XR_ITS ---
WS: [id number] Left knee, AP and lateral views, 10/22/2020 Clinical Data: KNEE JOINT PAIN Comparison: None. Findings: No fractures or dislocations are seen. There is medial joint compartment narrowing. The posterior pat matthew shows no spurring.. The soft tissues are unremarkable. There is vascular calcification of the superficial femoral artery and the popliteal artery. XR/XR knee LT 1-2V [id number] Impression: Minimal osteoarthritic change with narrowing of the medial joint compartment of the left knee. Kellgren-Beny Classification: grade 1 (doubtful): doubtful joint space narr owing and possible osteophytic lipping
--- NOTE | 2020-10-22 10:06 | XR_ITS ---
WS: [id number] Right knee, AP and lateral views, 10/22/2020 Clinical Data: KNEE JOINT PAIN Comparison: None. Findings: No fractures or dislocations are seen. There is medial joint compartment narrowing. The posterior pat matthew shows minimal irregularity and there is an anterior superior spur. The soft tissues are unremar kable. There is vascular calcification of the superficial femoral artery and its distal branches. XR/XR knee RT 1-2V 41354 Impression: Minimal osteoarthritis of the right knee with medial joint compartment narrowin g and irregularity of the posterior patella Kellgren-Beny Classification: grade 2 (minimal): definite osteophytes and p ossible joint space narrowing
== END 2020-10-22 09:52 | disposition home or self-care (01) ==
PROVIDERS: PCP Nurse Practitioner Family; Visit Provider Nurse Practitioner Family
DX: M25.561 Pain in right knee (principal); M25.562 Pain in left knee; M54.5 Low back pain; M19.012 Primary osteoarthritis, left shoulder; M19.011 Primary osteoarthritis, right shoulder
CPT/HCPCS: 72120; 73030; 73560

== ENCOUNTER 2020-10-25 09:37 | Outpatient (CLI) | payer MEDICARE, SELFPAY ==
[2020-10-25 11:20] VITALS: BP 119/71; PULSE 59; RESP 14; TEMP 36.7; O2SAT 97
[2020-10-25 12:06] VITALS: BP 160/80; PULSE 60; RESP 14; TEMP 36.2; O2SAT 98
== END 2020-10-25 13:04 | disposition home or self-care (01) ==
PROVIDERS: PCP Nurse Practitioner Family; Visit Provider Nurse Practitioner Family
DX: U07.1 COVID-19 (principal)
CPT/HCPCS: 96365

== ENCOUNTER → 2020-11-12 13:53 | Outpatient (BNVA) | payer MEDICARE, SELFPAY | PROVIDERS: PCP Nurse Practitioner Family; Visit Provider Specialist | DX: G56.03 Carpal tunnel syndrome, bilateral upper limbs (principal) | CPT/HCPCS: 95910 ==

== ENCOUNTER → 2020-11-27 14:36 | Outpatient (BNVA) | payer MEDICARE, SELFPAY | PROVIDERS: PCP Nurse Practitioner Family; Referring Provider Nurse Practitioner Family; Visit Provider Specialist | DX: G56.03 Carpal tunnel syndrome, bilateral upper limbs (principal); Z46.89 Encounter for fitting and adjustment of other specified devices | CPT/HCPCS: 73110; L3908 ==

== ENCOUNTER 2020-11-27 15:59 | Outpatient (CLI) | payer MEDICARE, SELFPAY | END 2020-11-27 16:00 | disposition home or self-care (01) | LOC: SPT 15:59 | PROVIDERS: PCP Nurse Practitioner Family; Visit Provider Specialist | DX: Z46.89 Encounter for fitting and adjustment of other specified devices (principal); G56.03 Carpal tunnel syndrome, bilateral upper limbs | CPT/HCPCS: L3908 ==

== ENCOUNTER → 2020-12-02 12:50 | Outpatient (BNVA) | payer MEDICARE, SELFPAY | PROVIDERS: PCP Nurse Practitioner Family; Visit Provider Internal Medicine | DX: R76.8 Other specified abnormal immunological findings in serum (principal); M25.50 Pain in unspecified joint; Z79.899 Other long term (current) drug therapy; Z11.59 Encounter for screening for other viral diseases | CPT/HCPCS: 36415; 73120; 86160; 86704; 86803; 87340; 99204 ==

== ENCOUNTER 2020-12-02 14:59 | Outpatient (CLI) | payer MEDICARE, SELFPAY ==
--- NOTE | 2020-12-02 15:08 | XR_ITS ---
WS: [id number] XR hand RT 2V [id number] REASON FOR EXAM: R76.8 - Other specified abnormal immunological findings i... FINDINGS: Mild joint space narrowing narrowing with subchondral sclerosis involving the MIP and DIP joints of t he first and fifth fingers. Similar arthropathic change seen in the MP joint of the thumb and to a le sser extent in the carpal metacarpal joint of the thumb. No focal bone abnormality. No soft tissue abnormality. XR/XR hand RT 2V 13514 IMPRESSION: Findings compatible with mild osteoarthritis as above.
--- NOTE | 2020-12-02 15:08 | XR_ITS ---
WS: [id number] XR hand LT 2V [id number] REASON FOR EXAM: R76.8 - Other specified abnormal immunological findings i... FINDINGS: There is mild narrowing of the joint spaces with subchondral sclerosis in the MIP and DIP joints of t he left No focal bony abnormality. No soft tissue abnormality. First and fifth fingers. Similar but milder changes are seen in the metac arpal phalangeal joint and carpal metacarpal joint of the left thumb. XR/XR hand LT 2V [id number] IMPRESSION: Findings compatible with mild osteoarthritis as above.
== END 2020-12-02 15:00 | disposition home or self-care (01) ==
LOC: RAD 15:05
PROVIDERS: PCP Nurse Practitioner Family; Visit Provider Internal Medicine
DX: R76.8 Other specified abnormal immunological findings in serum (principal); Z11.59 Encounter for screening for other viral diseases
CPT/HCPCS: 73120; 86160; 86704; 86803; 87340

== ENCOUNTER 2020-12-06 10:13 | Day surgery (SDC) | payer MEDICARE, SELFPAY ==
[2020-12-05 13:57] VITALS: BMI 41.5
[2020-12-06 10:37] VITALS: BP 166/63; PULSE 61; RESP 16; TEMP 36.6; O2SAT 99
[2020-12-06] MEDS: sodium chloride 0.9% 1,000 ML 30 ML IV (10:50)
[2020-12-06] MEDS: acetaminophen 1,000 MG/100 ML PIGGYBACK 400 MG IV (10:50)
[2020-12-06 10:55] LABS: Glucose Point of Care 98 mg/dL (70-110)
--- NOTE | 2020-12-06 10:58 | P.HPUD_ITS ---
Surgery/Procedure H&P Update DATE OF PROCEDURE: December 06, 2020 DATE H&P PERFORMED: 11/27/20 H&P UPDATE INFORMATION: I have reviewed H&P completed within last 30 days, I have examined patient prior to procedure, No changes to prior documentation and H&P is in [facility] [place] on date indicated PREOP DIAGNOSIS: Left carpal tunnel syndrome PLANNED PROCEDURE: Operation Date: 12/06/20 11:35 Proposed Procedures p Carpal Tunnel Release 41179 G56.02 G56.00(Left) - Laurita Estrada MD Related Problem List Diagnoses (1) Carpal tunnel syndrome, left:
[2020-12-06 11:10] LABS: Alanine Aminotransferase 53 U/L (0-41); Albumin Level 3.9 g/dL (3.5-5.2); Alkaline Phosphatase 44 IU/L (40-130); Aspartate Amino Transferase 19 U/L (0-40); Blood Urea Nitrogen 10 mg/dL (8-23); Calcium 8.3 mg/dL (8.5-10.5); Carbon Dioxide 28 mmol/L (22-29); Chloride 95 mmol/L (98-107); Globulin 2.5 g/dL (1.3-4.6); Glucose 84 mg/dL (65-115); Osmolality Calculated 270 mOsm/kg (285-295); Sodium 131 mmol/L (136-145); Total Bilirubin 0.7 mg/dL (0.15-1.2); Total Protein 6.4 g/dL (6.6-8.7)
[2020-12-06 11:12] LABS: Anion Gap 11.4 (5-19); Potassium 3.4 mmol/L (3.5-5.1)
--- NOTE | 2020-12-06 12:12 | P.ANESASSM_ITS ---
Pre-Anesthetic Assessment Pre-Anesthetic Assessment: Height/Weight: Height 1.7 m Weight 120.202 kg Temp Pulse Resp BP Pulse Ox 97.8 F 61 16 166/63 99 12/06/20 10:37 12/06/20 10:37 12/06/20 10:37 12/06/20 10:37 12/06/20 10:37 Preop Diagnosis: Left carpal tunnel syndrome Proposed Procedure: Operation Date: 12/06/20 11:35 Proposed Procedures p Carpal Tunnel Release [id number] G56.02 G56.00(Left) - Laurita Estrada MD Was Beta Saravanan taken within 24 hours: Yes Was Clonidine taken within 24 hours: N/A Last intake: Intake Last Liquid Date 12/05/20 Last Liquid Time 23:00 Last Solid Date 12/05/20 Last Solid Time 23:00 Social: Social History: No alcohol and No tobacco Exam: Pre-Anes Outpt Exam: alert, oriented x 3, clear to auscultation bilat erally and regular rate & rhythm Airway: Submandibular: WNL Cervical ROM: WNL MP: 2 Dentition: Chipped Additional comments: [place] Pulmonary: Pulmonary: Sleep apnea CV/HEM: CV/HEM: HTN GI: GI: GERD Metabolic: Metabolic: DM, Hyperlipidemia and Morbid obesity Anesthetic Plan: ASA status: 3 Anesthesia: MAC and Regional (specify below) (Chet stephenson) Risk of > 500 ml blood loss (7ml/kg in children): No Meds/Allergies Current Medications: Current Medications Generic Name Dose Route Start Last Admin Trade Name Freq PRN Reason Stop Dose Admin Sodium Chloride 1,000 mls @ 30 ml s/hr 12/06/20 10:30 12/06/20 10:50 Sodium Chloride 0.9% IV 12/07/20 10:29 30 mls/hr .Q24H RADHA Administration PFSH Anesthesia PFSH: Medical History (Updated 12/02/20 @ 13:22 by Dana Solano MD) BPH (benign prostatic hyperplasia) Erectile dysfunction due to diseases classified elsewhere Hypertension Type 2 diabetes mellitus Surgical History H/O carpal tunnel repair H/O hernia repair H/O knee surgery S/P appendectomy S/P routine circumcision Family History Family/Other Hypertension Psychiatric illness Mother , 93 No problems noted. Social History (Updated 12/02/20 @ 13:30 by Shira Steward LPN) Smoking and tobacco status: never smoked Alcohol intake: never Marital status: Single History of recent travel: No Data Anesthesia CBC & Chem 7: 12/06/20 10:45 Other Labs: Laboratory Results - last 48 hr 12/06/20 12/06/20 10:44 10:45 Sodium 131 L Potassium 3.4 L Chloride 95 L Carbon Dioxide 28 Anion Gap 11.4 BUN 10 Creatinine 0.6 L GFR Calculation 134.0 H Glucose 84 POC Glucose 98 Calculated Osmolality 270 L Calcium 8.3 L Total Bilirubin 0.7 AST 19 ALT 53 H Alkaline Phosphatase 44 Total Protein 6.4 L Albumin 3.9 Globulin 2.5 Cardiac Studies: No Data to Display
[2020-12-06 12:21] VITALS: BP 123/58; PULSE 61; RESP 18; TEMP 36.3; O2SAT 98
[2020-12-06 12:25] VITALS: BP 115/60; PULSE 61; RESP 17; TEMP 36.6; O2SAT 100
[2020-12-06 12:29] VITALS: BP 108/70; PULSE 59; RESP 16; TEMP 36.6; O2SAT 99
[2020-12-06 12:44] VITALS: BP 110/69; PULSE 60; RESP 15; TEMP 36.6; O2SAT 99
--- NOTE | 2020-12-06 12:44 | P.OP_ITS ---
Operative Report Date of procedure: December 06, 2020 Pre-op Diagnosis: Left carpal tunnel syndrome Post-op Findings: Compressed median nerve across the carpal canal Procedure Done: Left carpal tunnel release Pathology: none sent Surgeon: Laurita Estrada Plumbing Assembler: None Anesthesia: MAC (With Chet block, ASA 3) Estimated blood loss (mL): 0 Tourniquet time (min): 36 Tourniquet time: At 250 mmHg IV fluids (mL): 400 Urine output (mL): 0 Urine output: No Mccoy Complications: None Findings: Hourglass median nerve Condition: stable Disposition: PACU (Then to same-day surgery for discharge to home) Brief History: This 70-year-old gentleman presented with complaints consistent with carpal tunnel syndrome. After discussion, the patient wished to proceed with operative intervention as he has significant limitations in his activities of daily living. Risks and complications were discussed with him. Consents were signed preoperatively. Questions were answered. Procedure: The patient was brought to the operating theater. The patient had a [place] block with MAC. The tourniquet was elevated to 250 mmHg for a total tourniquet time of 36 minutes. The patient was also given Ancef 2 g preoperatively. The arm was then prepped and draped with DuraPrep in usual fashion with the arm draped free. A surgical pause was performed. At the time, the surgical pause, we confirmed the site and side of surgery. We also confirmed the patient's identity, appropriate and timely administration of preoperative antibiotics and preoperative surgical markings. An incision was then made along the thenar crease. The incision crossed the wrist joint in a curvilinear fashion. Dissection continued through skin and soft tissues using a scalpel. The palmaris longus was identified along with the transverse carpal ligament. Each of these was released carefully to avoid injury to the median nerve. We were able to dissect gently into the carpal canal which was noted to be quite tight with significant compression across the median nerve. The nerve was visualized and was an hourglass shape with purplish discoloration. The canal was subsequently palpated to assure there was no bony encroachment upon the canal. The canal was then palpated distally and proximally to assure that my small finger was passed easily without impingement. Finding this to be so, attention was directed to closure. The wound was irrigated with ropivacaine plain. It was then closed with 3-0 nylon in an interrupted mattress fashion. Sterile dressing was then placed consisting of Dermabond, OpSite3, fluffed fluffs, sterile soft roll, a volar splint, and an Alexy wrap. The tourniquet was released after 33 minutes. There were no complications. There were no specimens. The procedure was well tolerated. Plan is the patient will be discharged home. Associated Problem List Diagnoses (1) Carpal tunnel syndrome, left:
--- NOTE | 2020-12-06 13:36 | ANE.PACU2 ---
Inpatient post-anesthesia follow up: Airway intact: Yes Vital signs: Temperature 97.8 F Pulse Rate 60 Respiratory Rate 15 Blood Pressure 110/69 Pulse Oximetry 99 Oxygen Delivery Me thod Room Air Oxygen Flow Rate Fraction of Inspir ed Oxygen Hydration adequate: Yes Nausea and vomiting: No Pain level: 1 Mental status: Baseline
== END 2020-12-06 13:10 | disposition home or self-care (01) ==
PROVIDERS: PCP Nurse Practitioner Family; Visit Provider Specialist
PROC: (CPT 64721; principal; 2020-12-06 11:25)
DX: G56.02 Carpal tunnel syndrome, left upper limb (principal); G47.30 Sleep apnea, unspecified; I10 Essential (primary) hypertension; K21.9 Gastro-esophageal reflux disease without esophagitis; E11.9 Type 2 diabetes mellitus without complications; E78.5 Hyperlipidemia, unspecified; E66.01 Morbid (severe) obesity due to excess calories; Z68.41 Body mass index [BMI] 40.0-44.9, adult; N40.0 Benign prostatic hyperplasia without lower urinary tract symptoms; Z82.49 Family history of ischemic heart disease and other diseases of the circulatory system
CPT/HCPCS: 64721; 36416; 80053; 82962; 96365; J0690; J2250; J2704; J3490; J7030

== ENCOUNTER → 2020-12-16 12:29 | Outpatient (BNVA) | payer MEDICARE, SELFPAY | PROVIDERS: PCP Nurse Practitioner Family; Visit Provider Internal Medicine | DX: R76.8 Other specified abnormal immunological findings in serum (principal) | CPT/HCPCS: 81003 ==

== ENCOUNTER 2020-12-19 09:13 | Outpatient (CLI) | payer MEDICARE, SELFPAY ==
[2020-12-19 09:50] LABS: Basophils % 0.4 %; Eosinophils # 0.1 10^3/uL (0.0-0.8); Eosinophils % 1.1 %; Hematocrit 32.3 % (42.0-52.0); Hemoglobin 10.8 g/dL (11.7-16.6); Lymphocytes # 1.3 10^3/uL (0.8-4.8); Lymphocytes % 14.8 %; Mean Corpuscular HGB Conc 33.4 g/dL (30.0-36.0); Mean Corpuscular Hemoglobin 33.9 pg (28.0-34.0); Mean Corpuscular Volume 101.3 fl (80-94); Mean Platelet Volume 8.3 fL (7.4-10.4); Monocytes # 0.7 10^3/uL (0.2-0.9); Monocytes % 8.3 %; Neutrophils # 6.42 10^3/uL (1.8-7.7); Neutrophils % 75.2 %; Nucleated Red Blood Cells % 0 %; Platelet Count 300 10^3/cmm (130-400); Red Blood Count 3.19 10^6/uL (4.1-5.3); Red Cell Distribution Width 13.7 % (12.1-15.1); White Blood Count 8.5 10^3/uL (4.0-10.0)
[2020-12-19 10:30] LABS: LAB Peripheral Smear Sent for Review
[2020-12-19 10:33] LABS: Anion Gap 12.4 (5-19); Blood Urea Nitrogen 14 mg/dL (8-23); Calcium 9.3 mg/dL (8.5-10.5); Carbon Dioxide 28 mmol/L (22-29); Chloride 95 mmol/L (98-107); Ferritin 198 ng/mL (30-400); Glucose 90 mg/dL (65-115); Iron 111 ug/dL (59-158); Osmolality Calculated 274 mOsm/kg (285-295); Percent Saturation 37.3 % (20-50); Potassium 3.4 mmol/L (3.5-5.1); Sodium 132 mmol/L (136-145); Total Iron Binding Capacity 297 mcg/dl; Unsaturated Iron Binding 186 ug/dL (112-347); Vitamin B12 1432 pg/mL (232-1245)
[2020-12-19 10:39] LABS: Folate Level 11.6 ng/mL (4.5-32.2)
== END 2020-12-19 09:14 | disposition home or self-care (01) ==
PROVIDERS: Visit Provider Family Medicine
DX: D64.9 Anemia, unspecified (principal); E87.1 Hypo-osmolality and hyponatremia; E87.6 Hypokalemia
CPT/HCPCS: 80048; 80500; 82607; 82728; 82746; 83540; 83550; 84443; 85025; 85045

== ENCOUNTER 2020-12-26 09:18 | Outpatient (CLI) | payer MEDICARE, SELFPAY ==
--- NOTE | 2020-12-26 09:22 | USCV_ITS ---
Noah Muller Age: 70 Gender: M : 1950 Exam Date: 12/26/2020 09:35 Ordering Phys: Shara Sheridan TRANSITIONAL STUDIES INSTRUCTOR TRANSITIONAL STUDIES INSTRUCTOR Technologist: Prema Minaya Exam Location: [facility] [place] Indication: AORTIC DILATION HISTORY: Diameter (cm) AP x Transverse x Length Velocity (cm/s) Waveform Prox Aorta: 1.89 x 2.30 x 49.60 Mid Aorta: 2.54 x 2.50 x 105.75 Distal Aorta: 2.25 x 2.21 x 110.70 Right Iliac Prox: 1.47 x 1.47 x 118.40 Left Iliac Prox: 1.34 x 1.10 x 112.30 Stent Prox Landing x x Aneurysmal Sac Max x x Lt Lat Sac Dim Rt Lat Sac Dim Stent Dist Landing x x Right Iliac Stent x x Left Iliac Stent x x Right Renal Art Left Renal Art FINDINGS: Minimally dilated mid abdominal aorta measuring 2.54 x 2.50 cm Minimally dilated proximal iliac arteries bilaterally Normal Doppler flow velocities. CONCLUSIONS 1. Slightly ectatic mid abdominal aorta. 2. Slightly ectatic proximal common iliac arteries bilaterally 3. No significant aneurysms or any unstable lesions in the above- mentioned vessels. Dr Jan Jensen MD [facility] (Electronically Signed) Final Date: 26 December 2020 20:15 S
== END 2020-12-26 09:19 | disposition home or self-care (01) ==
LOC: US 09:19
PROVIDERS: PCP Nurse Practitioner Family; Visit Provider Nurse Practitioner Family
DX: I77.819 Aortic ectasia, unspecified site (principal)
CPT/HCPCS: 76706

== ENCOUNTER 2021-02-17 09:32 | Outpatient (CLI) | payer MEDICARE, SELFPAY ==
[2021-02-17 10:53] LABS: Basophils % 0.4 %; Eosinophils # 0.2 10^3/uL (0.0-0.8); Eosinophils % 3.2 %; Hematocrit 34.1 % (42.0-52.0); Hemoglobin 11.7 g/dL (11.7-16.6); Lymphocytes # 1.4 10^3/uL (0.8-4.8); Lymphocytes % 19.3 %; Mean Corpuscular HGB Conc 34.3 g/dL (30.0-36.0); Mean Corpuscular Hemoglobin 33.6 pg (28.0-34.0); Monocytes # 0.6 10^3/uL (0.2-0.9); Monocytes % 8.4 %; Neutrophils # 5.06 10^3/uL (1.8-7.7); Neutrophils % 68.4 %; Nucleated Red Blood Cells % 0 %; Platelet Count 357 10^3/cmm (130-400); Red Blood Count 3.48 10^6/uL (4.1-5.3); White Blood Count 7.4 10^3/uL (4.0-10.0)
[2021-02-17 13:41] LABS: Reticulocyte % 2.3 % (0.5-2.0)
--- NOTE | 2021-02-17 15:45 | ONC FU_ITS ---
Dr. Delgado follow up note Patient: Noah Muller Unit #: [id number]: 1950 Dicatated By: Latosha Delgado M.D.Date of Visit:Feb 17, 2021 Onc Med Follow-up/Prog Note History of Present Illness: Mr. Noah Muller, is a 70-year-old gentleman with history of rheumatoid arthritis, diagnosed at age 16,, as per patient, he was diagnosed with anemia When he was in 30s, initially, he was told, it was due to iron deficiency, he was given oral iron supplement , he was noncompliant due to GI intolerance but he did try oral iron on multiple occasions, never required blood transfusion. As per patient in , he underwent bone marrow evaluation, he was told it was inconclusive. Patient underwent routine follow-up colonoscopy and EGD, in 2016 or 18, by Dr. Barnes., As per patient, did not show any significant abnormality or bleeding. Patient denies any melena or hematochezia, denies any hemoptysis or hematemesis, denies any jaundice, denies any urine or stool color changes, denies any hematuria, denies any petechia or ecchymosis, denies any night sweats, denies any recurrent fever or weight loss, denies any peripheral lymphadenopathy or abdominal fullness., Denies any generalized weakness and fatigue, denies any palpitation or chest pain or dyspnea exertion. As far as rheumatoid arthritis is concerned,Patient is followed by rheumatology, now on Plaquenil, also take ibuprofen on as-needed basis for chronic joint/bone pains Patient denies any alcohol use, denies any family history of anemia. Medications: Allergy Relief 1 Tablet (of 180 mg) Oral daily, Carvedilol 1 Tablet (of 25 mg) Oral b.i.d., Cephalexin 1 Capsule (of 500 mg) Oral t.i.d., Chlorthalidone 1 Tablet (of 25 mg) Oral daily, Clindamycin HCl 1 Capsule (of 300 mg) Oral t.i.d., Clotrimazole-Betamethasone (1-0.05 %) Cream Topical b.i.d., Diclofenac Sodium 1 Tablet (of 75 mg) Tablet, enteric coated Oral t.i.d. PRN, Imitrex 2 Tablet (of 25 mg) Oral q 2 hours for 2 doses PRN, Losartan Potassium 1 Tablet (of 100 mg) Oral daily, Pantoprazole Sodium 1 Tablet (of 40 mg) Tablet, enteric coated Oral daily, Rosuvastatin Calcium 1 Tablet (of 10 mg) Oral daily, Triamcinolone Acetonide (0.5 %) Cream Topical b.i.d. PRN Allergies: Sulfa Antibiotics Review of Systems: Review of Systems is not available for this patient. Vital Signs: Performed on Feb 17, 2021 11:38 Height - 67 in Weight - 268.6 lbs (HIGH) BSA - 2.29 sq.m BMI - 42.07 (HIGH) Temperature - 98.3 F (LOW) Pulse - 59 /min (LOW) Respiration - 18 /min BP - 165/80 mm(hg) (HIGH) O2 Sat - 97 % Pain - 6 Fatigue - 5 Performance Status: 0 - Fully active, able to carry on all predisease activities without restrictions. (ECOG) Physical Examination: ENMT - No mouth sores, no thrush, no jaundice, no cervical lymphadenopathy, Respiratory - Lungs are clear to auscultation, Cardiovascular - Regular rate and rhythm of heart, Abdomen - Soft, bowel sounds present, Extremities - No visible edema. Lab/Imaging: Most recent lab results are not available for this patient. Impression: Mild isolated normochromic, macrocytic anemia, etiology unclear could be multifactorial, iron deficiency plus minus B12/folate deficiency, anemia of chronic disease e.g. rheumatoid arthritis, medications especially antiarthritis, considering his age underlying myelodysplasia cannot be ruled out CBC done on December 16, 2020 showed white blood count 5.3 hemoglobin 10.8 g normal being 13-17.7 hematocrit 31 platelets 314,000 with a normal differential, As per medical record his B12, folate level was within normal range Rheumatoid arthritis, diagnosed at age 16 Plan: Discussed with patient regarding his labs white blood count 7.4 hemoglobin 11.7gm (11.7-16.6), hematocrit 34.1 platelets 357,000 with a normal differential MCV 98 Clinically, patient is doing well with mild/low normal macrocytic anemia, etiology could be multifactorial including anemia of chronic disease due to rheumatoid arthritis as patient was diagnosed with this condition at age 16, other possibility could be antirheumatoid arthritis medication interfering with erythropoiesis directly or indirectly. Other possibility could be chronic GI blood loss due to chronic NSAID use and now considering his age underlying small bowel AVMs cannot be ruled out as, recently done EGD and colonoscopy showed no obvious cause of chronic blood loss. Other possibility could be iron malabsorption causing iron deficiency anemia. And considering his age underlying myelodysplasia cannot be ruled out either. As per medical record his B12, folate was within normal range, we will consider iron studies, as patient has history of iron deficiency anemia and if shows low iron, may consider iron supplement, parenterally as patient has history of GI intolerance causing noncompliance. Today's labs shows hemoglobin in the normal range but on the lower side, with a normal white blood cell and platelet count moreover as per patient he has anemia for most of his life and underwent bone marrow evaluation for this and which did not shows any significant abnormality. , Patient has well compensated mild anemia which was seen on his labs done in November 2020 at that time his hemoglobin was 10.8 g with MCV 96 with a normal white blood cell and platelets. Patient will return to clinic in 1 month with CBC, will review that and plan accordingly Signed By: Latosha Delgado M.D. <<Signature on File>>
== END 2021-02-17 09:33 | disposition home or self-care (01) ==
LOC: ONCMED 09:35
PROVIDERS: PCP Nurse Practitioner Family; Visit Provider Internal Medicine Hematology & Oncology
DX: D50.9 Iron deficiency anemia, unspecified (principal); D51.9 Vitamin B12 deficiency anemia, unspecified; M06.9 Rheumatoid arthritis, unspecified; Z79.899 Other long term (current) drug therapy
CPT/HCPCS: 36415; 85025; 85045; 99204

== ENCOUNTER 2021-03-07 08:39 | Outpatient (CLI) | payer MEDICARE, SELFPAY ==
--- NOTE | 2021-03-07 08:46 | MR_ITS ---
WS: [id number] MRI of the left wrist, 03/07/2021 Clinical Data: PAIN IN UNSPECIFIED WRIST Comparison: Left wrist x-ray, 11/27/2020. Findings: There is increased signal in the lunate bone which may indicate osteonecrosis. There is fluid in the radial ulnar articulation which may represent a triangular fibrocartilage tear. No carpal bone fractu res are seen. The median nerve and tendons in the carpal tunnel appear normal. The external carpi roque is tendon is normal. There is a marker on the dorsum of the wrist marking the site of pain. No scapho lunate tears are seen. There are no soft tissue masses. MR/MR wrist LT wo con* [id number] Impression: 1. Increased signal in the lunate of the left wrist which could indicate osteon ecrosis. 2. Fluid at the radial ulnar articulation which can represent a triangular fibr ocartilage tear.
--- NOTE | 2021-03-07 08:47 | MR_ITS ---
WS: [id number] MRI of the right wrist, 03/07/2021 Clinical Data: PAIN IN UNSPECIFIED WRIST Comparison: Right wrist x-ray, 11/27/2020 Findings: There is a marker on the radial aspect of the right wrist. There is no aseptic necrosis or evidence o f fracture of the carpal bones. The intrinsic ligaments appear to be intact. The TFCC appears to be n ormal. The external carpi ulnaris signal is normal. The radiocarpal joint is unremarkable. No radial carpal or scapholunate tears are seen. The patient's motion obscures some detail. The carpal tunnel s hows fullness of the soft tissue surrounding the tendons and the median nerve. This can be seen with tenosynovitis. MR/MR wrist RT wo con* [id number] Impression: Fullness of the soft tissue surrounding the carpal tunnel of the right wrist wh ich can be seen with tenosynovitis.
== END 2021-03-07 08:40 | disposition home or self-care (01) ==
PROVIDERS: PCP Nurse Practitioner Family; Visit Provider Specialist
DX: M25.532 Pain in left wrist (principal); G56.01 Carpal tunnel syndrome, right upper limb
CPT/HCPCS: 73221

== ENCOUNTER 2021-03-20 10:44 | Outpatient (CLI) | payer MEDICARE, SELFPAY ==
[2021-03-20 11:49] LABS: Basophils % 0.5 %; Eosinophils # 0.3 10^3/uL (0.0-0.8); Eosinophils % 3.2 %; Hemoglobin 12.1 g/dL (11.7-16.6); Lymphocytes # 1.4 10^3/uL (0.8-4.8); Lymphocytes % 17.7 %; Mean Corpuscular HGB Conc 33.6 g/dL (30.0-36.0); Mean Corpuscular Hemoglobin 32.5 pg (28.0-34.0); Mean Corpuscular Volume 96.8 fl (80-94); Mean Platelet Volume 8.8 fL (7.4-10.4); Monocytes # 0.6 10^3/uL (0.2-0.9); Monocytes % 7.7 %; Neutrophils # 5.48 10^3/uL (1.8-7.7); Neutrophils % 70.6 %; Nucleated Red Blood Cells % 0 %; Platelet Count 333 10^3/cmm (130-400); Red Blood Count 3.72 10^6/uL (4.1-5.3); Red Cell Distribution Width 13.1 % (12.1-15.1); White Blood Count 7.8 10^3/uL (4.0-10.0)
[2021-03-20 12:04] LABS: Ferritin 99 ng/mL (30-400); Iron 58 ug/dL (59-158); Percent Saturation 19.7 % (20-50); Total Iron Binding Capacity 294 mcg/dl; Unsaturated Iron Binding 236 ug/dL (112-347)
[2021-03-20 12:17] LABS: Vitamin B12 581 pg/mL (232-1245)
[2021-03-20 13:08] LABS: Folate Level > 20.0 ng/mL (4.5-32.2)
--- NOTE | 2021-03-20 13:49 | ONC FU_ITS ---
Dr. Delgado follow up note Patient: Noah Muller Unit #: [id number]: 1950 Dicatated By: Latosha Delgado M.D.Date of Visit:Mar 20, 2021 Onc Med Follow-up/Prog Note History of Present Illness: Mr. Noah Muller, is a 70-year-old gentleman with history of rheumatoid arthritis, diagnosed at age 16,, as per patient, he was diagnosed with anemia When he was in 30s, initially, he was told, it was due to iron deficiency, he was given oral iron supplement , he was noncompliant due to GI intolerance but he did try oral iron on multiple occasions, never required blood transfusion. As per patient in , he underwent bone marrow evaluation, he was told it was inconclusive. Patient underwent routine follow-up colonoscopy and EGD, in 2016 or 18, by Dr. Barnes., As per patient, did not show any significant abnormality or bleeding. Patient denies any melena or hematochezia, denies any hemoptysis or hematemesis, denies any jaundice, denies any urine or stool color changes, denies any hematuria, denies any petechia or ecchymosis, denies any night sweats, denies any recurrent fever or weight loss, denies any peripheral lymphadenopathy or abdominal fullness., Denies any generalized weakness and fatigue, denies any palpitation or chest pain or dyspnea exertion. As far as rheumatoid arthritis is concerned,Patient is followed by rheumatology, now on Plaquenil, also take ibuprofen on as-needed basis for chronic joint/bone pains Patient denies any alcohol use, denies any family history of anemia. Came for follow-up, denies any specific complaints, no fever chills, no nausea or vomiting, no diarrhea constipation, no melena or hematochezia, No shortness of breath or palpitation, no night sweats. Medications: Allergy Relief 1 Tablet (of 180 mg) Oral daily, Carvedilol 1 Tablet (of 25 mg) Oral b.i.d., Cephalexin 1 Capsule (of 500 mg) Oral t.i.d., Chlorthalidone 1 Tablet (of 25 mg) Oral daily, Clindamycin HCl 1 Capsule (of 300 mg) Oral t.i.d., Clotrimazole-Betamethasone (1-0.05 %) Cream Topical b.i.d., Diclofenac Sodium 1 Tablet (of 75 mg) Tablet, enteric coated Oral t.i.d. PRN, Imitrex 2 Tablet (of 25 mg) Oral q 2 hours for 2 doses PRN, Losartan Potassium 1 Tablet (of 100 mg) Oral daily, Pantoprazole Sodium 1 Tablet (of 40 mg) Tablet, enteric coated Oral daily, Rosuvastatin Calcium 1 Tablet (of 10 mg) Oral daily, Triamcinolone Acetonide (0.5 %) Cream Topical b.i.d. PRN Allergies: Sulfa Antibiotics Review of Systems: Review of Systems is not available for this patient. Vital Signs: Performed on Mar 20, 2021 13:09 Height - 67.00 in Weight - 264.6 lbs (LOW) BSA - 2.28 sq.m BMI - 41.44 (HIGH) Temperature - 98.0 F (LOW) Pulse - 58 /min (LOW) Respiration - 20 /min BP - 156/77 mm(hg) (HIGH) O2 Sat - 94 % (LOW) Pain - 3 Fatigue - 1 Performance Status: 0 - Fully active, able to carry on all predisease activities without restrictions. (ECOG) Physical Examination: ENMT - No mouth sores, no thrush, no jaundice, Respiratory - Lungs are clear to auscultation, Cardiovascular - Regular rate and rhythm of heart, Abdomen - Soft, bowel sounds present, Extremities - No visible edema. Lab/Imaging: Most recent lab results are not available for this patient. Impression: Mild isolated normochromic, macrocytic anemia, etiology unclear could be multifactorial, iron deficiency plus minus B12/folate deficiency, anemia of chronic disease e.g. rheumatoid arthritis, medications especially antiarthritis, considering his age underlying myelodysplasia cannot be ruled out CBC done on December 16, 2020 showed white blood count 5.3 hemoglobin 10.8 g normal being 13-17.7 hematocrit 31 platelets 314,000 with a normal differential, As per medical record his B12, folate level was within normal range Rheumatoid arthritis, diagnosed at age 16 Plan: Discussed with patient regarding his labs white blood count 7.8 hemoglobin 12.1 g compared to 11.7 previously hematocrit 36 platelets 333,000, MCV 96.8, iron studies shows ferritin 99 iron saturation 19.7% iron 58 TIBC 294 folate more than 20 vitamin B12 581 Clinically, patient doing well with no new signs symptoms, his follow-up lab work-up shows resolution of mild isolated normocytic anemia, his anemia work-up is inconclusive. At this point no further recommendations other follow-up patient return to clinic in 3 months with CBC and iron studies Signed By: Latosha Delgado M.D. <<Signature on File>>
== END 2021-03-20 10:45 | disposition home or self-care (01) ==
LOC: ONCMED 10:51
PROVIDERS: PCP Nurse Practitioner Family; Visit Provider Internal Medicine Hematology & Oncology
DX: D53.9 Nutritional anemia, unspecified (principal); M06.9 Rheumatoid arthritis, unspecified
CPT/HCPCS: 36415; 82607; 82728; 82746; 83540; 83550; 85025; 99214

== ENCOUNTER 2021-04-01 06:00 | Outpatient (RCR) | payer MEDICARE, SELFPAY | END 2021-04-21 23:59 | disposition home or self-care (01) | LOC: SOT 06:00 | PROVIDERS: PCP Nurse Practitioner Family; Referring Provider Specialist; Visit Provider Specialist | DX: Z47.89 Encounter for other orthopedic aftercare (principal) | CPT/HCPCS: 97022; 97032; 97035; 97110; 97140; 97165 ==

== ENCOUNTER 2021-04-14 10:55 | Outpatient (CLI) | payer MEDICARE, SELFPAY ==
--- NOTE | 2021-04-14 11:17 | XR_ITS ---
WS: [id number] Left clavicle, 2 views, 04/14/2021 Clinical Data: CLAVICLE PAIN Comparison: Left shoulder, 10/22/2020. Findings: No fractures or dislocations are seen. The AC joint with mild osteoarthritis. The soft tissues are un remarkable. There is an inferior acromial spur unchanged. There is mild osteoarthritis of the left humeral head. The sternoclavicular joint is not remarkable. XR/[place] [id number] Impression: Mild osteoarthritis of left AC joint.
== END 2021-04-14 10:56 | disposition home or self-care (01) ==
LOC: RAD 11:00
PROVIDERS: PCP Nurse Practitioner Family; Visit Provider Nurse Practitioner Family
DX: M89.8X8 Other specified disorders of bone, other site (principal); M19.012 Primary osteoarthritis, left shoulder
CPT/HCPCS: 73000; 81003; 84153

== ENCOUNTER → 2021-06-12 08:37 | Outpatient (BNVA) | payer MEDICARE, SELFPAY | PROVIDERS: PCP Nurse Practitioner Family; Visit Provider Internal Medicine | DX: R76.8 Other specified abnormal immunological findings in serum (principal); M25.50 Pain in unspecified joint; Z79.899 Other long term (current) drug therapy | CPT/HCPCS: 99214 ==

== ENCOUNTER 2021-06-24 11:02 | Outpatient (CLI) | payer MEDICARE, SELFPAY ==
[2021-06-24 11:49] LABS: Basophils % 0.7 %; Eosinophils # 0.2 10^3/uL (0.0-0.8); Eosinophils % 3.9 %; Hematocrit 33.7 % (42.0-52.0); Hemoglobin 11.2 g/dL (11.7-16.6); Lymphocytes # 1.3 10^3/uL (0.8-4.8); Lymphocytes % 20.5 %; Mean Corpuscular HGB Conc 33.2 g/dL (30.0-36.0); Mean Corpuscular Hemoglobin 33.1 pg (28.0-34.0); Mean Corpuscular Volume 99.7 fl (80-94); Monocytes # 0.6 10^3/uL (0.2-0.9); Monocytes % 9.7 %; Neutrophils # 3.95 10^3/uL (1.8-7.7); Neutrophils % 64.9 %; Nucleated Red Blood Cells % 0 %; Platelet Count 262 10^3/cmm (130-400); Red Blood Count 3.38 10^6/uL (4.1-5.3); Red Cell Distribution Width 13.5 % (12.1-15.1); White Blood Count 6.1 10^3/uL (4.0-10.0)
[2021-06-24 12:06] LABS: Ferritin 78 ng/mL (30-400); Iron 106 ug/dL (59-158); Percent Saturation 42.2 % (20-50); Total Iron Binding Capacity 251 mcg/dl; Unsaturated Iron Binding 145 ug/dL (112-347)
--- NOTE | 2021-06-27 09:15 | ONC FU_ITS ---
Dr. Delgado follow up note Patient: Noah Muller Unit #: [id number]: 1950 Dicatated By: Latosha Delgado M.D.Date of Visit:Jun 24, 2021 Onc Med Follow-up/Prog Note History of Present Illness: Mr. Noah Mullre, is a 70-year-old gentleman with history of rheumatoid arthritis, diagnosed at age 16,, as per patient, he was diagnosed with anemia When he was in 30s, initially, he was told, it was due to iron deficiency, he was given oral iron supplement , he was noncompliant due to GI intolerance but he did try oral iron on multiple occasions, never required blood transfusion. As per patient in , he underwent bone marrow evaluation, he was told it was inconclusive. Patient underwent routine follow-up colonoscopy and EGD, in 2016 or 18, by Dr. Barnes., As per patient, did not show any significant abnormality or bleeding. Patient denies any melena or hematochezia, denies any hemoptysis or hematemesis, denies any jaundice, denies any urine or stool color changes, denies any hematuria, denies any petechia or ecchymosis, denies any night sweats, denies any recurrent fever or weight loss, denies any peripheral lymphadenopathy or abdominal fullness., Denies any generalized weakness and fatigue, denies any palpitation or chest pain or dyspnea exertion. As far as rheumatoid arthritis is concerned,Patient is followed by rheumatology, now on Plaquenil, also take ibuprofen on as-needed basis for chronic joint/bone pains Patient denies any alcohol use, denies any family history of anemia. Came for follow-up, denies any specific complaints, no fever chills, no nausea or vomiting, no diarrhea or constipation, no melena or hematochezia, no hemoptysis or hematemesis, no headaches no blurred vision double vision, no shortness of breath or palpitation at rest Medications: Allergy Relief 1 Tablet (of 180 mg) Oral daily, Carvedilol 1 Tablet (of 25 mg) Oral b.i.d., Losartan Potassium 1 Tablet (of 100 mg) Oral daily, Pantoprazole Sodium 1 Tablet (of 40 mg) Tablet, enteric coated Oral daily, Rosuvastatin Calcium 1 Tablet (of 10 mg) Oral daily Allergies: Sulfa Antibiotics Review of Systems: Review of Systems is not available for this patient. Vital Signs: Performed on Jun 24, 2021 12:24 Height - 67.00 in Weight - 263.6 lbs (LOW) BSA - 2.27 sq.m BMI - 41.29 (HIGH) Temperature - 98.5 F Pulse - 58 /min (LOW) Respiration - 19 /min BP - 200/90 mm(hg) (HIGH) O2 Sat - 98 % Pain - 0 Fatigue - 7 Performance Status: 0 - Fully active, able to carry on all predisease activities without restrictions. (ECOG) Physical Examination: ENMT - No mouth sores, no thrush, no jaundice, Respiratory - Lungs are clear to auscultation, Cardiovascular - Regular rate and rhythm of heart, Abdomen - Soft, bowel sounds present, Extremities - No visible edema. Lab/Imaging: Test performed on May 02, 2021 15:39 Glucose 90 mg/dL BUN 12 mg/dL Creatinine 0.81 mg/dL BUN/Creatinine Ratio 15 Absolute Value Sodium 125 mmol/L Potassium 4.1 mmol/L Chloride 87 mmol/L CO2 27 mmol/L Calcium 9.5 mg/dL WBC 5.5 10^9/L RBC 3.63 10^12/L HGB 11.6 g/dL HCT 32.6 % MCV 90 fl MCH 32.0 pg MCHC 35.6 g/dL RDW 13.4 % Platelet Count 254 10^9/L Neutrophils (Gran) 3.9 10^9/L Lymphocytes 0.77 10^9/L Monocytes 0.55 10^9/L Eosinophils 0.22 10^9/L Basophils 0.055 10^9/L Impression: Mild isolated normochromic, macrocytic anemia, etiology unclear could be multifactorial, iron deficiency plus minus B12/folate deficiency, anemia of chronic disease e.g. rheumatoid arthritis, medications especially antiarthritis, considering his age underlying myelodysplasia cannot be ruled out CBC done on December 16, 2020 showed white blood count 5.3 hemoglobin 10.8 g normal being 13-17.7 hematocrit 31 platelets 314,000 with a normal differential, As per medical record his B12, folate level was within normal range Rheumatoid arthritis, diagnosed at age 16 Plan: Discussed with patient regarding his labs white blood count 6.1 hemoglobin 11.2 g compared to 9.6 cm previously hematocrit 33.7 platelets 262,000 iron studies shows iron saturation 42.2% compared to 19.7 previously, ferritin 78, iron 106 TIBC 251 Clinically, patient doing well with no new signs symptoms his follow-up lab work-up shows stable but mild anemia with adequate iron stores., Etiology of his anemia could be multifactorial including underlying myelodysplasia or anemia of chronic disease due to rheumatoid arthritis, will continue to monitor and he will return to clinic in 3 months with CBC if there is a further drop in his hemoglobin, may consider bone marrow evaluation to rule out underlying myelodysplasia During triage, patient was found to be hypertensive is blood pressure was 199/82, repeat manual was 206/99, as per patient this morning took [id number] medication for erectile dysfunction which is equal into Cialis, one would expect hypotension rather hypertension, will send him to ER for evaluation. Signed By: Latosha Delgado M.D. <<Signature on File>>
== END 2021-06-24 11:03 | disposition home or self-care (01) ==
PROVIDERS: PCP Nurse Practitioner Family; Visit Provider Internal Medicine Hematology & Oncology
DX: D64.9 Anemia, unspecified (principal); M06.9 Rheumatoid arthritis, unspecified
CPT/HCPCS: 36415; 82728; 83540; 83550; 85025; 99214

== ENCOUNTER 2021-06-24 13:08 | Emergency (ER) | payer MEDICARE, SELFPAY ==
[2021-06-24] VITALS (7 sets, daily range): BP systolic 151–223; BP diastolic 77–111; PULSE 57–69; RESP 16–20; TEMP 36.6; O2SAT 96–98; BMI 41.1
--- NOTE | 2021-06-24 13:29 | ECG_ITS ---
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 Measurements Intervals [place] Rate: 58 P: 29 CA: 177 QRS: 78 QRSD: 102 T: 71 QT: 437 QTc: 430 Interpretive Statements SINUS BRADYCARDIA Compared to ECG 10/11/2019 16:56:40 No significant changes Electronically Signed On 06-24-2021 22:55:53 CDT by Jan Jensen M.D. [id number]
--- NOTE | 2021-06-24 14:02 | CT_ITS ---
WS: [id number] CT HEAD TECHNIQUE: Noncontrast CT of the head obtained from the skullbase to the vertex. CLINICAL INFORMATION: Hypertensive urgency with headache COMPARISON: None. DLP: 1096.[address] scans at [facility] use at least one of these dose optimization techniques: automated e xposure control; mA and/or kV adjustment per patient size (includes targeted exams where dose is matc hed to clinical indication); or iterative reconstruction. FINDINGS: No evidence of intracranial hemorrhage or mass effect. Ventricular system and basal cisterns are landry nt. Mild small vessel changes with mild parenchymal volume loss. Tiny chronic lacunar infarct RIGHT c erebellum. No extra-axial fluid collections. No evidence of mass or mass effect. Normal staton-white di fferentiation. Dilated tortuous bilateral superior ophthalmic veins with a presumed Venous varix versus intraconal l esion such as hemangioma on the LEFT measuring 1.7 x 1.4 CM. Recommend correlation with proptosis and visual symptoms. Dilated superior ophthalmic veins are nonspecific but can be seen with hypertension , increased intracranial pressure, or less likely cavernous carotid fistula considering bilateral inv olvement. Venous thrombosis is an additional consideration. No evidence of increased intracranial pre ssure or hydrocephalus on today's examination. CT/CT head wo con* [id number] IMPRESSION: 1. No evidence of intracranial hemorrhage or mass effect. 2. Mild small vessel changes. Mild parenchymal volume loss. 3. Tiny chronic lacunar infarct RIGHT cerebellum. 4. 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 This is nonspecific and recommend further evaluation with CTA head or MRI without and with gadolinium with MRA. Recommend correlation with visual symptoms. 5. Otherwise no acute intracranial findings. Notified JULITA Sanon at 06/24/2021 4:01 PM.
--- NOTE | 2021-06-24 14:03 | ED_ITS ---
Documented by User: JULITA Sanon 06/25/21 06:59 HPI - General Adult General: Chief complaint: General Medical Stated complaint: high B/P Time Seen by Provider: 06/24/21 13:28 History of Present Illness: Patient is a 70-year-old male comes to the ED with elevated blood pressure. Patient was at Dr. Delgado's office and he had an elevated blood pressure reading there. He says his systolic number was 206. He was told him to come to the ED to be evaluated. He denies any other symptoms. He has a headache currently but says he has headaches all the time and this feels like some of his past headaches. Patient says he did take his tadalafil this morning. Denies any vision changes, numbness tingling to face or weakness to 1 side of his face or extremities. Associated symptoms: Reports headache(s); Deny chest pain, dyspnea, nausea, rash, palpitations or vomiting Review of Systems Const: Denies: fever(s), chills or fatigue Eyes: Denies: change in vision or eye discomfort ENMT: Denies: throat pain, odynophagia, nasal discharge or nasal congestion Card: Denies: chest pain, palpitations, edema, swelling of feet/ankles, dyspnea on exertion or orthopnea Resp: Denies: dyspnea, productive cough or non-productive cough GI: Denies: abdominal pain, nausea, vomiting, diarrhea, constipation or hematochezia : Denies: flank pain, difficulty urinating, dysuria or hematuria Musc: Denies: neck pain, back pain or extremity swelling Skin/Breast: Denies: rash or new lesions Neuro: Reports: headache(s); Denies: numbness in extremities or weakness in extremities PFSH ED PFSH: Medical History BPH (benign prostatic hyperplasia) Erectile dysfunction due to diseases classified elsewhere Hypertension Type 2 diabetes mellitus Surgical History H/O carpal tunnel repair H/O hernia repair H/O knee surgery S/P appendectomy S/P routine circumcision Family History Family/Other Hypertension Psychiatric illness Mother , 93 No problems noted. Social History Smoking and tobacco status: unknown if ever smoked Alcohol intake: former Marital status: Single Current occupational status: retired History of recent travel: No Physical Exam Const: COMMON NORMALS: no acute distress, patient oriented x3 and alert GENERAL APPEARANCE: cooperative and comfortable HENMT: COMMON NORMALS: normocephalic HEAD & SCALP: normocephalic MOUTH: Normal oral and palatal mucosa present THROAT: posterior oropharynx normal and uvula midline Neck/C-Spine: COMMON NORMALS: supple GENERAL: Yes normal visual inspection Resp: COMMON NORMALS: normal respiratory effort, No retractions, No use of accessory muscles and clear to auscultation bilaterally AUSCULTATION: clear to auscultation bilaterally Cardio: COMMON NORMALS: regular rate, regular rhythm, S1 normal heart sound present, S2 normal heart sound present, No gallops present (Cardio), No clicks present (Cardio), No murmurs present (Cardio) and Peripheral pulses 2+ throughout RATE: regular rate RHYTHM: regular rhythm HEART SOUNDS: S1 normal heart sound present and S2 normal heart sound present PERIPHERAL PULSE S: Peripheral pulses 2+ throughout GI: COMMON NORMALS: Normal to inspection, nondistended, normoactive bowel sounds present, Soft to palpation, non-tender and no masses PALPATION: Yes Soft to palpation : COMMON NORMALS: Yes no CVA tenderness BLADDER/KIDNEY EXAM: Yes no CVA tenderness Back/Pelvis: COMMON NORMALS: no CVA tenderness Extremity: COMMON NORMALS: normal to inspection Neuro: COMMON NORMALS: patient oriented x3, CN's II-XII intact bilaterally, moves all extremities, no focal motor deficits and no sensory deficits noted SENSORIUM/ORIENTATION: Yes alert SENSORY EXAM: Yes extremities (intact) MOTOR EXAM: 5/5 motor strength present throughout Skin: GENERAL SKIN EXAM: dry skin Course Vital Signs: Vital signs: Vital Signs Temperature 97.8 F 06/24/21 13:16 Pulse Rate 62 06/24/21 18:53 Respiratory Rate 16 06/24/21 18:53 Blood Pressure 151/77 06/24/21 18:53 Pulse Oximetry 98 06/24/21 18:53 [facility] - General Adult Medical Decision Making Patient presents with high blood pressure. could be from his recent Cialis. blood work here is normal. Head CT showed vascular lesion informant. I placed order with case monitor patient be referred to Dr. Hannah the patient relations director and also set up an outpatient CTA of head and neck to better evaluate vascular lesion. follow-up with Opthamology for the finding on the CT scan he has an appoint with his PCP tomorrow he is want to go home. Blood pressure here is improved we will not adjust any meds at this time as he has appointment tomorrow with PCP. return if worsening he understands agrees to plan. Lab Data I reviewed the patient's lab results. : 06/24/21 18:11 06/24/21 18:[address] 06/24/21 14:02 IMPRESSION: 1. No evidence of intracranial hemorrhage or mass effect. 2. Mild small vessel changes. Mild parenchymal volume loss. 3. Tiny chronic lacunar infarct RIGHT cerebellum. 4. Dilated tortuous superior ophthalmic veins with presumed venous varix versus intraconal lesion on the LEFT measuring 1.7 x 1.4 CM. This is nonspecific and recommend further evaluation with CTA head or MRI without and with gadolinium with MRA. Recommend correlation with visual symptoms. 5. Otherwise no acute intracranial findings. Notified JULITA Sanon at 06/24/2021 4:01 PM. Laboratory Results WBC 7.2 10^3/uL (4.0-10.0) 06/24/21 18:11 RBC 3.58 10^6/uL (4.1-5.3) L 06/24/21 18:11 Hgb 11.9 g/dL (11.7-16.6) 06/24/21 18:11 Hct 35.3 % (42.0-52.0) L 06/24/21 18:11 MCV 98.6 fl (80-94) H 06/24/21 18:11 MCH 33.2 pg (28.0-34.0) 06/24/21 18:11 MCHC 33.7 g/dL (30.0-36.0) 06/24/21 18:11 RDW 13.3 % (12.1-15.1) 06/24/21 18:11 Plt Count 273 10^3/cmm (130-400) 06/24/21 18:11 MPV 9.3 fL (7.4-10.4) 06/24/21 18:11 Neut % (Auto) 60.6 % 06/24/21 18:11 Lymph % (Auto) 24.9 % 06/24/21 18:11 Bradford % (Auto) 9.9 % 06/24/21 18:11 Eos % (Auto) 3.8 % 06/24/21 18:11 Baso % (Auto) 0.7 % 06/24/21 18:11 Neut # (Auto) 4.36 10^3/uL (1.8-7.7) 06/24/21 18:11 Lymph # (Auto) 1.8 10^3/uL (0.8-4.8) 06/24/21 18:11 Bradford # (Auto) 0.7 10^3/uL (0.2-0.9) 06/24/21 18:11 Eos # (Auto) 0.3 10^3/uL (0.0-0.8) 06/24/21 18:11 Baso # (Auto) 0.1 10^3/uL (0.0-0.1) 06/24/21 18:11 Nucleated RBC % (auto) 0 % 06/24/21 18:11 Nucleated RBCs # 0.0 /100WBC 06/24/21 18:11 Sodium 135 mmol/L (136-145) L 06/24/21 18:11 Potassium 3.4 mmol/L (3.5-5.1) L 06/24/21 18:11 Chloride 99 mmol/L (98-107) 06/24/21 18:11 Carbon Dioxide 26 mmol/L (22-29) 06/24/21 18:11 Anion Gap 13.4 (5-19) 06/24/21 18:11 BUN 12 mg/dL (8-23) 06/24/21 18:11 Creatinine 0.6 mg/dL (0.7-1.2) L 06/24/21 18:11 GFR Calculation 134.0 mL/min (90-130) H 06/24/21 18:11 Glucose 83 mg/dL (65-115) 06/24/21 18:11 Calculated Osmolality 279 mOsm/kg (285-295) L 06/24/21 18:11 Calcium 9.7 mg/dL (8.5-10.5) 06/24/21 18:11 Total Bilirubin 0.6 mg/dL (0.15-1.2) 06/24/21 18:11 AST 21 U/L (0-40) 06/24/21 18:11 ALT 29 U/L (0-41) 06/24/21 18:11 Alkaline Phosphatase 55 IU/L (40-130) 06/24/21 18:11 Total Protein 7.7 g/dL (6.6-8.7) 06/24/21 18:11 Albumin 4.4 g/dL (3.5-5.2) 06/24/21 18:11 Globulin 3.3 g/dL (1.3-4.6) 06/24/21 18:11 EKG Data EKG 1: EKG interpretation date: 06/24/21 Interpretation: Sinus bradycardia, no ST segment elevation or depression seen, 58 bpm. Computer generated interpretation: Head CT 06/24/21 14:02 IMPRESSION: 1. No evidence of intracranial hemorrhage or mass effect. 2. Mild small vessel changes. Mild parenchymal volume loss. 3. Tiny chronic lacunar infarct RIGHT cerebellum. 4. Dilated tortuous superior ophthalmic veins with presumed venous varix versus intraconal lesion on the LEFT measuring 1.7 x 1.4 CM. This is nonspecific and recommend further evaluation with CTA head or MRI without and with gadolinium with MRA. Recommend correlation with visual symptoms. 5. Otherwise no acute intracranial findings. Notified JULITA Sanon at 06/24/2021 4:01 PM. Discharge Plan Discharge Patient Disposition: Home Clinical Impression: Asymptomatic hypertensive urgency, Vascular lesion of orbit Condition: Stable Prescriptions: No Action mecobalamin (vitamin B12) 5,000 mcg tablet,disintegrating 5,000 mcg PO QAM 0RF Lactase Fast Acting 9,000 unit tablet,chewable 9,000 unit PO TID 0RF Rx Instructions: administer with meals and/or snacks multivitamin [Daily Multi-Vitamin] Tablet 1 tab PO DAILY 0RF folic acid 1 mg tablet 1 mg PO DAILY Qty: 60 2RF (DME) wrist splint See Rx Instructions .Route .MEDSUPPLY Qty: 2 0RF Rx Instructions: As directed one for left and one for right tadalafil 20 mg tablet 20 mg PO DAILY PRN (Reason: sexual activity) Qty: 20 12RF Rx Instructions: Take approx 30min before intercourse; do not use more than 1 dose per 24hrs; NO NITROGLYCERIN pantoprazole 40 mg Tablet,Delayed Release (Dr/Ec) 40 mg PO QAM 0RF losartan 100 mg Tablet 100 mg PO QAM 0RF rosuvastatin [Crestor] 10 mg Tablet 10 mg PO QAM 0RF carvedilol 25 mg tablet 25 mg PO BID 0RF hydroxychloroquine 200 mg tablet 200 mg PO BID 0RF Probiotic Gummies 2 tab PO BEDTIME 0RF triamcinolone acetonide 0.1 % cream See Rx Instructions .ROUTE .COMPLEX 0RF Rx Instructions: Apply to affected areas no more than 2-3 times weekly as needed. ketoconazole 2 % cream See Rx Instructions .ROUTE .COMPLEX 0RF Rx Instructions: Apply to affected areas in skin folds bid x 3 weeks then prn for flares Discharge Orders: Discharge ED (Routine); Ordered 06/24/21 Ordered By: Arlet Patiño Referrals: Migue Wolfe NP [Primary Care Provider] - Discharge Diet: Regular Discharge Activity: Resume usual activity Activity Restrictions/Additional Instructions: Follow-up with primary care physician next couple days to discuss blood pressure medications. Case management should be contacting you next several days set up an appointment with Dr. Hannah and to schedule an appointment for outpatient CTA of head neck. Continue taking all home medications as prescribed. Check your blood pressures at least 3 times a day and journal them to show primary care physician at your next appointment. Return to the ER or your medical provider if condition worsens. Please read and understand discharge instructions. Thank you for choosing [facility] for your healthcare needs today. Please realize this is an emergency room and that we are providing you with a medical screening exam and this may not be complete and all inclusive of all the testing and or work up that you may need to determine your ailment or severity of your illness. It is very important that you follow up as instructed or that you return to the Emergency Department should you have concerns or if your condition changes or worsens in any way. Coding Level of Care Code ED Physician Practice Coordinator for Chg Fwd Exam Comprehensive Documented by User: Arlet Patiño MD 06/24/21 18:59 HPI - General Adult General: Chief complaint: General Medical Stated complaint: high B/P Time Seen by Provider: 06/24/21 13:28 PFSH ED PFSH: Medical History BPH (benign prostatic hyperplasia) Erectile dysfunction due to diseases classified elsewhere Hypertension Type 2 diabetes mellitus Surgical History H/O carpal tunnel repair H/O hernia repair H/O knee surgery S/P appendectomy S/P routine circumcision Family History Family/Other Hypertension Psychiatric illness Mother , 93 No problems noted. Social History Smoking and tobacco status: unknown if ever smoked Alcohol intake: former Marital status: Single Current occupational status: retired History of recent travel: No Course Vital Signs: Vital signs: Vital Signs Temperature 97.8 F 06/24/21 13:16 Pulse Rate 62 06/24/21 18:53 Respiratory Rate 16 06/24/21 18:53 Blood Pressure 151/77 06/24/21 18:53 Pulse Oximetry 98 06/24/21 18:53 [facility] - General Adult Medical Decision Making Patient presents with high blood pressure could be from his recent Cialis blood work here is normal he is to follow-up with Ortho for the finding on the CT scan he has an appoint with his PCP tomorrow he is want to go home. Blood pressure here is improved we will not adjust any meds at this time as he is in his appointment tomorrow he is return if worsening he understands agrees to plan. Lab Data : 06/24/21 18:11 06/24/21 18:[address] 06/24/21 14:02 IMPRESSION: 1. No evidence of intracranial hemorrhage or mass effect. 2. Mild small vessel changes. Mild parenchymal volume loss. 3. Tiny chronic lacunar infarct RIGHT cerebellum. 4. Dilated tortuous superior ophthalmic veins with presumed venous varix versus intraconal lesion on the LEFT measuring 1.7 x 1.4 CM. This is nonspecific and recommend further evaluation with CTA head or MRI without and with gadolinium with MRA. Recommend correlation with visual symptoms. 5. Otherwise no acute intracranial findings. Notified JULITA Sanon at 06/24/2021 4:01 PM. Laboratory Results WBC 7.2 10^3/uL (4.0-10.0) 06/24/21 18:11 RBC 3.58 10^6/uL (4.1-5.3) L 06/24/21 18:11 Hgb 11.9 g/dL (11.7-16.6) 06/24/21 18:11 Hct 35.3 % (42.0-52.0) L 06/24/21 18:11 MCV 98.6 fl (80-94) H 06/24/21 18:11 MCH 33.2 pg (28.0-34.0) 06/24/21 18: MCHC 33.7 g/dL (30.0-36.0) 06/24/21 18: RDW 13.3 % (12.1-15.1) 06/24/21 18:11 Plt Count 273 10^3/cmm (130-400) 06/24/21 18:11 MPV 9.3 fL (7.4-10.4) 06/24/21 18:11 Neut % (Auto) 60.6 % 06/24/21 18:11 Lymph % (Auto) 24.9 % 06/24/21 18:11 Bradford % (Auto) 9.9 % 06/24/21 18:11 Eos % (Auto) 3.8 % 06/24/21 18:11 Baso % (Auto) 0.7 % 06/24/21 18:11 Neut # (Auto) 4.36 10^3/uL (1.8-7.7) 06/24/21 18:11 Lymph # (Auto) 1.8 10^3/uL (0.8-4.8) 06/24/21 18:11 Bradford # (Auto) 0.7 10^3/uL (0.2-0.9) 06/24/21 18:11 Eos # (Auto) 0.3 10^3/uL (0.0-0.8) 06/24/21 18:11 Baso # (Auto) 0.1 10^3/uL (0.0-0.1) 06/24/21 18:11 Nucleated RBC % (auto) 0 % 06/24/21 18:11 Nucleated RBCs # 0.0 /100WBC 06/24/21 18:11 Sodium 135 mmol/L (136-145) L 06/24/21 18:11 Potassium 3.4 mmol/L (3.5-5.1) L 06/24/21 18:11 Chloride 99 mmol/L (98-107) 06/24/21 18:11 Carbon Dioxide 26 mmol/L (22-29) 06/24/21 18:11 Anion Gap 13.4 (5-19) 06/24/21 18:11 BUN 12 mg/dL (8-23) 06/24/21 18:11 Creatinine 0.6 mg/dL (0.7-1.2) L 06/24/21 18:11 GFR Calculation 134.0 mL/min (90-130) H 06/24/21 18:11 Glucose 83 mg/dL (65-115) 06/24/21 18:11 Calculated Osmolality 279 mOsm/kg (285-295) L 06/24/21 18:11 Calcium 9.7 mg/dL (8.5-10.5) 06/24/21 18:11 Total Bilirubin 0.6 mg/dL (0.15-1.2) 06/24/21 18:11 AST 21 U/L (0-40) 06/24/21 18:11 ALT 29 U/L (0-41) 06/24/21 18:11 Alkaline Phosphatase 55 IU/L (40-130) 06/24/21 18:11 Total Protein 7.7 g/dL (6.6-8.7) 06/24/21 18:11 Albumin 4.4 g/dL (3.5-5.2) 06/24/21 18:11 Globulin 3.3 g/dL (1.3-4.6) 06/24/21 18:11 EKG Data EKG 1: Computer generated interpretation: Head CT 06/24/21 14:02 IMPRESSION: 1. No evidence of intracranial hemorrhage or mass effect. 2. Mild small vessel changes. Mild parenchymal volume loss. 3. Tiny chronic lacunar infarct RIGHT cerebellum. 4. Dilated tortuous superior ophthalmic veins with presumed venous varix versus intraconal lesion on the LEFT measuring 1.7 x 1.4 CM. This is nonspecific and recommend further evaluation with CTA head or MRI without and with gadolinium with MRA. Recommend correlation with visual symptoms. 5. Otherwise no acute intracranial findings. Notified JULITA Sanon at 06/24/2021 4:01 PM. Discharge Plan Discharge Patient Disposition: Home Clinical Impression: Asymptomatic hypertensive urgency, Vascular lesion of orbit Condition: Stable Prescriptions: No Action mecobalamin (vitamin B12) 5,000 mcg tablet,disintegrating 5,000 mcg PO QAM 0RF Lactase Fast Acting 9,000 unit tablet,chewable 9,000 unit PO TID 0RF Rx Instructions: administer with meals and/or snacks multivitamin [Daily Multi-Vitamin] Tablet 1 tab PO DAILY 0RF folic acid 1 mg tablet 1 mg PO DAILY Qty: 60 2RF (DME) wrist splint See Rx Instructions .Route .MEDSUPPLY Qty: 2 0RF Rx Instructions: As directed one for left and one for right tadalafil 20 mg tablet 20 mg PO DAILY PRN (Reason: sexual activity) Qty: 20 12RF Rx Instructions: Take approx 30min before intercourse; do not use more than 1 dose per 24hrs; NO NITROGLYCERIN pantoprazole 40 mg Tablet,Delayed Release (Dr/Ec) 40 mg PO QAM 0RF losartan 100 mg Tablet 100 mg PO QAM 0RF rosuvastatin [Crestor] 10 mg Tablet 10 mg PO QAM 0RF carvedilol 25 mg tablet 25 mg PO BID 0RF hydroxychloroquine 200 mg tablet 200 mg PO BID 0RF Probiotic Gummies 2 tab PO BEDTIME 0RF triamcinolone acetonide 0.1 % cream See Rx Instructions .ROUTE .COMPLEX 0RF Rx Instructions: Apply to affected areas no more than 2-3 times weekly as needed. ketoconazole 2 % cream See Rx Instructions .ROUTE .COMPLEX 0RF Rx Instructions: Apply to affected areas in skin folds bid x 3 weeks then prn for flares Discharge Orders: Discharge ED (Routine); Ordered 06/24/21 Ordered By: Arlet Patiño Referrals: Migue Wolfe NP [Primary Care Provider] - Discharge Diet: Regular Discharge Activity: Resume usual activity Activity Restrictions/Additional Instructions: Follow-up with primary care physician next couple days to discuss blood pressure medications. Case management should be contacting you next several days set up an appointment with Dr. Hannah and to schedule an appointment for outpatient CTA of head neck. Continue taking all home medications as prescribed. Check your blood pressures at least 3 times a day and journal them to show primary care physician at your next appointment. Return to the ER or your medical provider if condition worsens. Please read and understand discharge instructions. Thank you for choosing [facility] for your healthcare needs today. Please realize this is an emergency room and that we are providing you with a medical screening exam and this may not be complete and all inclusive of all the testing and or work up that you may need to determine your ailment or severity of your illness. It is very important that you follow up as instructed or that you return to the Emergency Department should you have concerns or if your condition changes or worsens in any way. Coding Level of Care Code ED Physician Practice Coordinator for Kelly Walker Exam Comprehensive
[2021-06-24] MEDS: cloNIDine 0.1 mg Tablet 0.2 MG PO (17:00)
[2021-06-24] MEDS: amlodipine 10 mg Tablet PO (18:11)
[2021-06-24] MEDS: enalaprilat 1.25 mg/mL Inj IVP (18:12)
[2021-06-24 18:21] LABS: Basophils # 0.1 10^3/uL (0.0-0.1); Basophils % 0.7 %; Eosinophils # 0.3 10^3/uL (0.0-0.8); Eosinophils % 3.8 %; Hematocrit 35.3 % (42.0-52.0); Hemoglobin 11.9 g/dL (11.7-16.6); Lymphocytes # 1.8 10^3/uL (0.8-4.8); Lymphocytes % 24.9 %; Mean Corpuscular HGB Conc 33.7 g/dL (30.0-36.0); Mean Corpuscular Hemoglobin 33.2 pg (28.0-34.0); Mean Corpuscular Volume 98.6 fl (80-94); Mean Platelet Volume 9.3 fL (7.4-10.4); Monocytes # 0.7 10^3/uL (0.2-0.9); Monocytes % 9.9 %; Neutrophils # 4.36 10^3/uL (1.8-7.7); Neutrophils % 60.6 %; Nucleated Red Blood Cells % 0 %; Platelet Count 273 10^3/cmm (130-400); Red Blood Count 3.58 10^6/uL (4.1-5.3); Red Cell Distribution Width 13.3 % (12.1-15.1); White Blood Count 7.2 10^3/uL (4.0-10.0)
[2021-06-24 18:41] LABS: Alanine Aminotransferase 29 U/L (0-41); Albumin Level 4.4 g/dL (3.5-5.2); Alkaline Phosphatase 55 IU/L (40-130); Anion Gap 13.4 (5-19); Aspartate Amino Transferase 21 U/L (0-40); Blood Urea Nitrogen 12 mg/dL (8-23); Calcium 9.7 mg/dL (8.5-10.5); Carbon Dioxide 26 mmol/L (22-29); Chloride 99 mmol/L (98-107); Globulin 3.3 g/dL (1.3-4.6); Glucose 83 mg/dL (65-115); Osmolality Calculated 279 mOsm/kg (285-295); Potassium 3.4 mmol/L (3.5-5.1); Sodium 135 mmol/L (136-145); Total Bilirubin 0.6 mg/dL (0.15-1.2); Total Protein 7.7 g/dL (6.6-8.7)
--- NOTE | 2021-06-25 13:12 | DCPLANNER ---
Addendum entered by Radha Marrero 06/26/21 09:45: Dr. Hannah office called and requested some more information. manager care management faxed it the office of Dr. Hannah. Original Note: manager care management had message to schedule a follow up appointment for patient with Dr. Hannah. manager care management faxed patients information to the office of Dr. Hannah for clinic to review. Clinic will call patient with appointment information.
--- NOTE | 2021-06-25 13:14 | DCPLANNER ---
Addendum entered by Radha Marrero 08/15/21 18:48: this appointment was rescheduled for a later date. Addendum entered by Radha Marrero 07/24/21 21:51: Patient has a CTA scheduled for Sunday, August 01, 2021 at 1:30. Centralized scheduling will call patient with appointment information. Addendum entered by Radha Marrero 07/01/21 08:23: Patient had a follow up appointment scheduled for 06.27.[address] Hannah - patient did attend appointment. Addendum entered by Radha Marrero 06/26/21 09:34: call or contact centre manager called patient to confirm that patient wanted embedded case manager to order the CTA and confirmed that he sees Dr. Melgoza at [facility]. call or contact centre manager faxed signed order to centralized scheduling, who will call patient with appointment information. Original Note: call or contact centre manager also had message to schedule an out patient CTA for patient. call or contact centre manager faxed signed order to centralized scheduling, who will call patient with appointment information.
== END 2021-06-24 18:53 | disposition home or self-care (01) ==
PROVIDERS: Family Medicine; Emergency Provider Emergency Medicine; PCP Nurse Practitioner Family
DX: I16.0 Hypertensive urgency (principal); I99.8 Other disorder of circulatory system; E11.9 Type 2 diabetes mellitus without complications
CPT/HCPCS: 70450; 80053; 85025; 93005; 96374; 99284; J3490

== ENCOUNTER 2021-09-25 11:52 | Outpatient (CLI) | payer MEDICARE, SELFPAY ==
--- NOTE | 2021-09-25 11:57 | CT_ITS ---
WS: [id number] CTA HEAD AND NECK TECHNIQUE: Contrast enhanced CTA of the head and neck with coronal and sagittal reformatted images an d maximum intensity projection (MIP) images. NASCET criteria utilized. CLINICAL INFORMATION: VASCULAR LESION OF ORBIT COMPARISON: CT head June 24, 2021 DLP: 1772.[address] scans at [facility] use at least one of these dose optimization techniques: automated e xposure control; mA and/or kV adjustment per patient size (includes targeted exams where dose is matc hed to clinical indication); or iterative reconstruction. FINDINGS: Again seen is dilation of the bilateral superior ophthalmic veins with tortuous varicositie s. Multifocal tortuous varicosities in the RIGHT the largest measuring up to 1.2 x 1.3 cm. Dilated LE FT superior ophthalmic vein with tortuous varicosities measuring up to 1.6 x 1.5 CM. Asymmetric enhan cement LEFT greater than RIGHT superior ophthalmic veins. LEFT superior ophthalmic vein may be partia lly arterialized although no definite evidence of direct cavernous carotid fistula. Indirect fistula not excluded. Ophthalmic artery also passes in close proximity to the superior ophthalmic vein at the orbital apex and may contribute arterial supply. Poor enhancement of the RIGHT superior ophthalmic vein with distention and varicosities suspicious fo r superior ophthalmic vein thrombosis. Mild bilateral proptosis. Mild edema in the eyelids. Cavernous sinuses appear grossly normal. No definite evidence of cavernous carotid fistula or caverno us sinus thrombosis although incompletely evaluated on this examination. Bilateral varicosities are i nterposed between the superior rectus and superior ophthalmic vein. Mild mass effect on the LEFT grea ter than RIGHT optic nerves. RIGHT: RIGHT common carotid artery is patent. Moderate carotid bulb calcification with stenosis in th e RIGHT proximal ICA measuring approximately 30%.ICA is patent to the skull base. LEFT: LEFT common carotid artery is patent. Moderate carotid bulb calcification extending into the IC A. No significant LEFT ICA stenosis. LEFT ICA is patent to the skull base. Both vertebral arteries are patent. LEFT dominant vertebral artery. Dominant anterior circulation wit h patent RIGHT posterior communicating artery and persistent LEFT PHARMACIST IN CHARGE. Both ICAs are patent at the skull base. Dense cavernous carotid calcification. Hypoplastic RIGHT A1. Normal vascularity to the ROBIN and MCA territories bilaterally. Hypoplastic RIGHT A1 segment. Straightening of the normal cervical lordosis with moderate spondylitic changes cervical spine. Mild central canal stenosis due to disc osteophyte complexes at C5-C7. Normal visualized dural venous sinu ses. CT/CT angio headneck* [id number] IMPRESSION: 1. RIGHT ICA stenosis measures approximately 30%. 2. No significant LEFT ICA stenosis. 3. LEFT dominant vertebral artery. Both vertebral arteries are patent. 4. No flow-limiting intracranial stenosis. Dominant anterior circulation. 5. Dilatation of the bilateral superior ophthalmic veins with orbital varicosi ties LEFT greater than RIGHT. Poor enhancement of the RIGHT SOV suspicious for thrombosis. 6. Prominent enhancement LEFT superior ophthalmic vein suspicious for arteria lization. Indirect cavernous carotid fistula not excluded. 7. No definite evidence of cavernous sinus thrombosis or fistula on this study although this would be better Evaluated with MRI or conventional angiography. 8. Recommend correlation with visual symptoms and neurology or neuro-ophthalmi c consultation. 9. Dural venous sinuses appear patent. 10. No other acute findings.
[2021-09-25] MEDS: iohexol 350 mg/mL 100 mL Btl IV (13:49)
[2021-09-26 09:55] LABS: Blood Urea Nitrogen 13 mg/dL (8-23); Glomerular Filtration Rate 96.1 mL/min (90-130)
== END 2021-09-25 11:53 | disposition home or self-care (01) ==
LOC: RAD 11:54
PROVIDERS: Radiology Neuroradiology; PCP Nurse Practitioner Family; Visit Provider Physician Assistant
DX: D31.60 Benign neoplasm of unspecified site of unspecified orbit (principal)
CPT/HCPCS: 70496; 70498; 82565; 84520

== ENCOUNTER 2022-09-28 13:09 | Emergency (ER) | payer MEDICARE, SELFPAY ==
[2022-09-28 13:14] VITALS: BP 153/79; PULSE 70; RESP 16; TEMP 37; O2SAT 95; BMI 43.0
--- NOTE | 2022-09-28 13:51 | XRR_ITS ---
PROCEDURE INFORMATION: Exam: XR Chest Exam date and time: 09/28/2022 2:02 PM Age: 71 years old Clinical indication: Other: Edema.No history of trauma or recent surgery is provided. TECHNIQUE: Imaging protocol: Radiologic exam of the chest. 1image(s) are provided. Views: 1 view. COMPARISON: 1. CR XR chest 1V portable [id number] 10/11/2019 10:15 [place] 2[place] [id number] 04/14/2021 11:[address] chest w con* [id number] 12/31/2017 8:07 AM FINDINGS: Lungs: There is minimal subsegmental atelectasis versus post inflammatory scarring demonstrated. No lobar consolidation is appreciated. Pleural spaces: The inferolateral chest wall on the left and costophrenic angle are technically excluded. Heart/Mediastinum: The cardiomediastinal silhouette is upper normal in size.This can be seen with central averaging as well as tiffanie enlargement.No cardiac decompensation is appreciated. Diaphragm: There is slight asymmetric right hemidiaphragm elevation. Bones/joints: Osseous alignment is maintained.No interval displaced fracture or dislocation is appreciated. There are chronic degenerative changes of the shoulders. Soft tissues: No radiopaque foreign body or subcutaneous emphysema is appreciated. Other findings: No significant interval changes are appreciated. XR/XR chest 1V portable [id number] IMPRESSION: No lobar consolidation or cardiac decompensation is appreciated.No interval acute cardiopulmonary changes are appreciated.
[2022-09-28 14:45] LABS: Basophils # 0.1 10^3/uL (0.0-0.1); Basophils % 0.9 %; Eosinophils # 0.2 10^3/uL (0.0-0.8); Eosinophils % 3.8 %; Hematocrit 30.4 % (42.0-52.0); Hemoglobin 10.5 g/dL (11.7-16.6); Lymphocytes # 1.6 10^3/uL (0.8-4.8); Lymphocytes % 29.3 %; Mean Corpuscular HGB Conc 34.5 g/dL (30.0-36.0); Mean Corpuscular Hemoglobin 34.4 pg (28.0-34.0); Mean Corpuscular Volume 99.7 fl (80-94); Mean Platelet Volume 9.2 fL (7.4-10.4); Monocytes # 0.4 10^3/uL (0.2-0.9); Monocytes % 8.1 %; Neutrophils # 3.15 10^3/uL (1.8-7.7); Neutrophils % 57.7 %; Nucleated Red Blood Cells % 0 %; Platelet Count 293 10^3/cmm (130-400); Red Blood Count 3.05 10^6/uL (4.1-5.3); Red Cell Distribution Width 13.2 % (12.1-15.1); White Blood Count 5.5 10^3/uL (4.0-10.0)
[2022-09-28 15:16] LABS: Alanine Aminotransferase 37 U/L (0-41); Albumin Level 3.8 g/dL (3.5-5.2); Alkaline Phosphatase 35 U/L (40-130); Anion Gap 10.3 (5-19); Aspartate Amino Transferase 25 U/L (0-40); Blood Urea Nitrogen 10 mg/dL (8-23); Calcium 7.3 mg/dL (8.5-10.5); Carbon Dioxide 32 mmol/L (22-29); Chloride 89 mmol/L (98-107); Globulin 2.5 g/dL (1.3-4.6); Glomerular Filtration Rate 95.8 mL/min (90-130); Glucose 117 mg/dL (65-115); NT Pro B Type Natriuretic Pept 198 pg/mL (0-125); Osmolality Calculated 268 mOsm/kg (285-295); Sodium 129 mmol/L (136-145); Total Bilirubin 0.4 mg/dL (0.15-1.2); Total Protein 6.3 g/dL (6.6-8.7)
[2022-09-28 15:19] LABS: Potassium 2.3 mmol/L (3.5-5.1)
--- NOTE | 2022-09-28 15:25 | ED_ITS ---
HPI - Extremity Problem General: Chief complaint: Extremity Problem,Nontraumatic Stated complaint: emdma in legs Time Seen by Provider: 09/28/22 14:55 History of Present Illness: Patient complains of pitting edema in the bilateral lower extremities. Patient says this has been severe for the last couple days. Patient has had this before but never this bad. Patient did have a history of taking Lasix but is not on it currently. Patient says both legs are equally swollen. They get worse when he is standing up on them and they get better when he elevates them above his heart. Patient denies any pain in his extremities or erythema. Review of Systems General: Reports: 10 or more systems reviewed and unremarkable except in HPI and below PFSH ED PFSH: Medical History BPH (benign prostatic hyperplasia) Erectile dysfunction due to diseases classified elsewhere Hypertension Type 2 diabetes mellitus Surgical History H/O carpal tunnel repair H/O hernia repair H/O knee surgery S/P appendectomy S/P routine circumcision Family History Family/Other Hypertension Psychiatric illness Mother , 93 No problems noted. Social History Smoking and tobacco status: unknown if ever smoked Alcohol intake: former Substance/Drug Use: never Marital status: Single Current occupational status: retired Physical Exam Const: COMMON NORMALS: no acute distress, average body habitus, patient oriented x3, no limitations, healthy appearing, alert and well nourished HENMT: COMMON NORMALS: normocephalic, atraumatic, hearing grossly normal bilaterally, external ears normal, Normal external nose present and moist oral mucous membranes HEAD & SCALP: normocephalic and atraumatic NOSE: Normal external nose present EXTERNAL EAR: Yes external ears normal Eye: COMMON NORMALS: Equal, round and reactive pupils present, EOMs intact bilaterally, conjunctivae normal and no scleral icterus CONJUNCTIVA: Yes conjunctivae normal PUPIL: Yes Equal, round and reactive pupils present Neck/C-Spine: COMMON NORMALS: full ROM, no lymphadenopathy, supple, no meningeal signs, no JVD and Thyroid normal THYROID: Thyroid normal Chest: COMMONS NORMALS: normal inspection of the chest and normal palpation of entire chest wall Resp: COMMON NORMALS: normal respiratory effort, No retractions, No use of accessory muscles and clear to auscultation bilaterally AUSCULTATION: clear to auscultation bilaterally Cardio: COMMON NORMALS: no JVD, regular rate, regular rhythm, S1 normal heart sound present and S2 normal heart sound present RATE: regular rate RHYTHM: regular rhythm HEART SOUNDS: S1 normal heart sound present and S2 normal heart sound present GI: COMMON NORMALS: Normal to inspection, nondistended, normoactive bowel s ounds present, Soft to palpation, non-tender, No hepatosplenomegaly present and no masses PALPATION: Yes Soft to palpation and Yes No hepatosplenomegaly present Extremity: NARRATIVE EXTREMITY EXAM: Bilateral pitting edema even in compression stockings lower extremities. Symmetrical bilaterally Neuro: COMMON NORMALS: patient oriented x3 SENSORIUM/ORIENTATION: Yes alert MENINGEAL SIGNS: Yes no meningeal signs Course Vital Signs: Vital signs: Vital Signs Temperature 98.6 F 09/28/22 13:14 Pulse Rate 70 09/28/22 13:14 Respiratory Rate 16 09/28/22 13:14 Blood Pressure 153/79 09/28/22 13:14 Pulse Oximetry 95 09/28/22 13:14 Oxygen Delivery Me thod Room Air 09/28/22 13:14 MDM - Extremity (Nontraumatic) Medical Decision Making Patient presents to the ER with complaining of bilateral pitting edema. Patient said this is worse than its ever been patient does have a history of being on Lasix but is not currently on Lasix. Evaluation was performed lab work was obtained as well as chest x-ray. Chest x-ray was negative. Lab work showed a low sodium of 129 and potassium of 2.3 and a BNP of 198. EKG was benign. Patient was given 20 mg of Lasix and 40 mEq potassium here in the ER. Patient be discharged home on Lasix for the next 3 days as well as potassium for the next 7 days. Patient should follow-up with his PCP in 7 days to get his potassium rechecked. Differential Diagnosis Likely lower extremity edema; Unlikely herpes zoster, gout, cellulitis, superficial thrombophlebitis, deep venous thrombosis of upper extremity or deep vein thrombosis of lower extremity Medical Records I reviewed the patient's medical records. Lab Data I reviewed the patient's lab results. 09/28/22 14:28 09/28/22 14:28 Radiology Impressions Chest X-Ray 09/28/22 13:51 IMPRESSION: No lobar consolidation or cardiac decompensation is appreciated.No interval acute cardiopulmonary changes are appreciated. Laboratory Results WBC 5.5 10^3/uL (4.0-10.0) 09/28/22 14: RBC 3.05 10^6/uL (4.1-5.3) L 09/28/22 14:28 Hgb 10.5 g/dL (11.7-16.6) L 09/28/22 14:28 Hct 30.4 % (42.0-52.0) L 09/28/22 14: MCV 99.7 fl (80-94) H 09/28/22 14: MCH 34.4 pg (28.0-34.0) H 09/28/22 14: MCHC 34.5 g/dL (30.0-36.0) 09/28/22 14: RDW 13.2 % (12.1-15.1) 09/28/22 14:28 Plt Count 293 10^3/cmm (130-400) 09/28/22 14: MPV 9.2 fL (7.4-10.4) 09/28/22 14:28 Neut % (Auto) 57.7 % 09/28/22 14:28 Lymph % (Auto) 29.3 % 09/28/22 14:28 Curry % (Auto) 8.1 % 09/28/22 14:28 Eos % (Auto) 3.8 % 09/28/22 14:28 Baso % (Auto) 0.9 % 09/28/22 14:28 Neut # (Auto) 3.15 10^3/uL (1.8-7.7) 09/28/22 14:28 Lymph # (Auto) 1.6 10^3/uL (0.8-4.8) 09/28/22 14:28 Curry # (Auto) 0.4 10^3/uL (0.2-0.9) 09/28/22 14:28 Eos # (Auto) 0.2 10^3/uL (0.0-0.8) 09/28/22 14:28 Baso # (Auto) 0.1 10^3/uL (0.0-0.1) 09/28/22 14:28 Nucleated RBC % (auto) 0 % 09/28/22 14: Nucleated RBCs # 0.0 /100WBC 09/28/22 14:28 Sodium 129 mmol/L (136-145) L 09/28/22 14:28 Potassium 2.3 mmol/L (3.5-5.1) L* 09/28/22 14:28 Chloride 89 mmol/L (98-107) L 09/28/22 14:28 Carbon Dioxide 32 mmol/L (22-29) H 09/28/22 14:28 Anion Gap 10.3 (5-19) 09/28/22 14:28 BUN 10 mg/dL (8-23) 09/28/22 14:28 Creatinine 0.8 mg/dL (0.7-1.2) 09/28/22 14:28 GFR Calculation 95.8 mL/min (90-130) 09/28/22 14:28 Glucose 117 mg/dL (65-115) H 09/28/22 14:28 Calculated Osmolality 268 mOsm/kg (285-295) L 09/28/22 14:28 Calcium 7.3 mg/dL (8.5-10.5) L 09/28/22 14:28 Total Bilirubin 0.4 mg/dL (0.15-1.2) 09/28/22 14:28 AST 25 U/L (0-40) 09/28/22 14:28 ALT 37 U/L (0-41) 09/28/22 14:28 Alkaline Phosphatase 35 U/L (40-130) L 09/28/22 14:28 NT-Pro-B Natriuret Pep 198 pg/mL (0-125) H 09/28/22 14:28 Total Protein 6.3 g/dL (6.6-8.7) L 09/28/22 14:28 Albumin 3.8 g/dL (3.5-5.2) 09/28/22 14:28 Globulin 2.5 g/dL (1.3-4.6) 09/28/22 14:28 Urine Color Light yellow (Yellow) 09/28/22 15:46 Urine Appearance Clear (CLEAR) 09/28/22 15:46 Urine pH 7 (5-7) 09/28/22 15:46 Ur Specific [place] 1.010 (1.005-1.030) 09/28/22 15:46 Urine Protein Neg (Negative) 09/28/22 15:46 Urine Glucose (UA) Norm (Normal) 09/28/22 15:46 Urine Ketones Negative (Negative) 09/28/22 15:46 Urine Blood Neg (Negative) 09/28/22 15:46 Urine Nitrate Negative (Negative) 09/28/22 15:46 Urine Bilirubin Neg (Negative) 09/28/22 15:46 Urine Urobilinogen Norm mg/dL (Negative) 09/28/22 15:46 Ur Leukocyte Esterase Negative (Negative) 09/28/22 15:46 EKG Data EKG 1: I personally reviewed and interpreted this EKG as follows: EKG interpretation date: 09/28/22 EKG interpretation time: 16:02 Prior EKG tracings: not available for review Interpretation: EKG was normal sinus rhythm with a ventricular rate of 61 bpm, NJ interval 192, QRS duration 106, QTc of 440, no ST-T wave changes Discharge Plan Discharge Patient Disposition: Home Clinical Impression: Lower extremity edema, Acute hypokalemia Condition: Stable Prescriptions: New furosemide 20 mg tablet 20 mg PO DAILY Qty: 3 0RF potassium chloride 20 mEq tablet extended release 20 meq PO BID Qty: 14 0RF No Action Lactase Fast Acting 9,000 unit tablet,chewable 9,000 unit PO TID Rx Instructions: administer with meals and/or snacks (DME) wrist splint See Rx Instructions .Route .MEDSUPPLY Qty: 2 0RF Rx Instructions: As directed one for left and one for right tadalafil 20 mg tablet 20 mg PO DAILY PRN (Reason: sexual activity) Qty: 20 12RF Rx Instructions: Take approx 30min before intercourse; do not use more than 1 dose per 24hrs; NO NITROGLYCERIN pantoprazole 40 mg Tablet,Delayed Release (Dr/Ec) 40 mg PO QAM losartan 100 mg Tablet 100 mg PO QAM rosuvastatin [Crestor] 10 mg Tablet 10 mg PO QAM amlodipine 2.5 mg tablet 2.5 mg PO QAM doxycycline monohydrate 100 mg capsule 100 mg PO BID Rx Instructions: for 20 days (rx filled 09/18/22) diclofenac sodium 50 mg tablet,delayed release (DR/EC) 50 mg PO Q8H PRN (Reason: Pain) Probiotic Blend 2 billion cell-50 mg Capsule 1 cap PO QAM Rx Instructions: give with meal/snack carvedilol 25 mg tablet 25 mg PO BID Discharge Orders: Discharge ED (Routine); Ordered 09/28/22 Ordered By: Campbell Vazquez Referrals: Usama Melgoza MD [Primary Care Provider] - 1 week Patient Instructions: Hypokalemia (ED), Edema (ED) Activity Restrictions/Additional Instructions: Please take your medicine as directed. The Lasix will help drive off the excess fluid while the potassium will help replenish your potassium in your blood. Please follow-up with your primary care doctor in approximately 7 days for further recheck of your potassium. Coding Level of Care Code ED Senior Developer for Kelly Walker
--- NOTE | 2022-09-28 15:26 | ECG_ITS ---
[facility] Test Date: 2022-09-28 Pat Name: Noah Muller Department: Room: Gender: Male Soaker: : 1950 Requested By: Campbell Vazquez Order Number: [id number] Jessica MD: Neymar Lancaster M.D. Measurements Intervals [place] Rate: 61 P: 53 WV: 192 QRS: 69 QRSD: 106 T: 61 QT: 437 QTc: 443 Interpretive Statements SINUS RHYTHM Compared to ECG 06/24/2021 14:23:58 Sinus bradycardia no longer present Electronically Signed On 09-28-2022 16:18:43 CDT by Neymar Lancaster M.D. [id number]
[2022-09-28] MEDS: potassium chloride ER 20 mEq Tablet 40 MEQ PO (15:52)
[2022-09-28] MEDS: FUROsemide 40 mg Tablet PO (15:52)
[2022-09-28 16:05] LABS: Add Urine Microscopic? NO; Charge for UA Resulting for Rev
[2022-09-28 16:16] LABS: Bilirubin Urine Neg (Negative); Blood Urine Neg (Negative); Glucose Urine UA Norm (Normal); Ketones Urine Negative (Negative); Leukocyte Esterase Urine Negative (Negative); Nitrate Urine Negative (Negative); Protein Urine Neg (Negative); Urine Appearance Clear (CLEAR); Urine Color Light yellow (Yellow); Urobilinogen Urine Norm (Negative); pH Urine 7 (5-7)
[2022-09-28 16:47] VITALS: BP 162/100; O2SAT 97
== END 2022-09-28 17:01 | disposition home or self-care (01) ==
PROVIDERS: Physician Assistant; Emergency Provider Emergency Medicine; PCP Family Medicine
DX: R60.0 Localized edema (principal); E87.6 Hypokalemia; Z79.899 Other long term (current) drug therapy
CPT/HCPCS: 36415; 71045; 80053; 81003; 83880; 85025; 93005; 99285

== ENCOUNTER 2023-01-07 06:53 | Outpatient (CLI) | payer MEDICARE, SELFPAY ==
--- NOTE | 2023-01-07 | USCV_ITS ---
Noah Muller Age: 72 Gender: M : 1950 Exam Date: 01/07/2023 07:11 Ordering Phys: Eleanor Mcnamara Technologist: JESSICA Exam Location: [facility] [place] Indication: RLE PAIN AND SWELLING HISTORY: Lower extremity swelling. Lower extremity pain. PROCEDURES: Venous duplex imaging was performed in only the right lower extremity. The following venous structures were evaluated: common femoral vein, profunda vein, proximal portion of the greater saphenous vein, superficial femoral vein, and the popliteal vein. In addition, the posterior tibial and peroneal trunk were evaluated. Serial compression, augmentation maneuvers, and spectral Doppler flow evaluation were performed. FINDINGS: No evidence of DVT seen in any vessel visualized at this time. Examination was technically limited due to body habitus. Right Pop Fossa Perera's Cyst seen CONCLUSIONS No evidence of right lower extremity DVT. Right popliteal cyst 3.6 x 1.0cm with some internal debris Travon Murray MD (Electronically Signed) Final Date: 07 January 2023 10:02 S
== END 2023-01-07 06:54 | disposition home or self-care (01) ==
LOC: RAD 06:54
PROVIDERS: PCP Family Medicine; Visit Provider Nurse Practitioner Family
DX: M79.661 Pain in right lower leg (principal); M71.21 Synovial cyst of popliteal space [Baker], right knee
CPT/HCPCS: 93971

== ENCOUNTER → 2023-01-13 09:48 | Outpatient (BNVA) | payer MEDICARE, SELFPAY | PROVIDERS: PCP Family Medicine; Visit Provider Nurse Practitioner | DX: M17.11 Unilateral primary osteoarthritis, right knee (principal) | CPT/HCPCS: 73560; 73565; 99214 ==

== ENCOUNTER → 2023-02-05 09:25 | Outpatient (BNVA) | payer MEDICARE, SELFPAY | PROVIDERS: PCP Family Medicine; Visit Provider Nurse Practitioner | DX: M17.11 Unilateral primary osteoarthritis, right knee (principal) | CPT/HCPCS: 20610; 99214; J1100; J2795; J3301 ==

== ENCOUNTER 2023-04-28 14:40 | Emergency (ER) | payer MEDICARE, SELFPAY ==
[2023-04-28 14:42] VITALS: BP 183/83; PULSE 71; RESP 20; TEMP 36.1; O2SAT 97
--- NOTE | 2023-04-28 14:44 | ECG_ITS ---
[facility] Test Date: 2023-04-28 Pat Name: Noah Muller Department: Room: Gender: Male X Ray Technologist: : 1950 Requested By: All Barney Order Number: [id number] Jessica MD: Neymar Lancaster M.D. Measurements Intervals [place] Rate: 70 P: 50 MO: 169 QRS: 59 QRSD: 102 T: 52 QT: 370 QTc: 400 Interpretive Statements SINUS RHYTHM Compared to ECG 09/28/2022 16:02:27 No significant changes Electronically Signed On 04-28-2023 16:30:36 NAPHTHOL SOAPING MACHINE OPERATOR by Neymar Lancaster M.D. [id number]
--- NOTE | 2023-04-28 14:45 | XRR_ITS ---
PROCEDURE INFORMATION: Exam: XR Chest Exam date and time: 04/28/2023 3:03 PM Age: 72 years old Clinical indication: Pain; Angina pectoris; Additional info: Chest pain TECHNIQUE: Imaging protocol: Radiologic exam of the chest. Views: 1 view. COMPARISON: CR XR chest 1V portable [id number] 09/28/2022 2:02 PM FINDINGS: Lungs: No consolidation. Pleural spaces: No pleural effusion. No pneumothorax. Heart/Mediastinum: No cardiomegaly. Bones/joints: No acute findings. XR/XR chest 1V portable [id number] IMPRESSION: No acute findings.
[2023-04-28 15:19] LABS: Basophils % 0.5 %; Eosinophils # 0.1 10^3/uL (0.0-0.8); Hematocrit 38.3 % (37-53); Lymphocytes # 1.5 10^3/uL (0.8-4.8); Lymphocytes % 19.7 %; Mean Corpuscular HGB Conc 33.9 g/dL (30-55); Mean Corpuscular Hemoglobin 32.5 pg (27-33); Mean Corpuscular Volume 95.8 fl (82-101); Mean Platelet Volume 8.4 fL (7.4-10.4); Monocytes # 0.5 10^3/uL (0.2-0.9); Monocytes % 6.7 %; Neutrophils # 5.49 10^3/uL (1.8-7.7); Neutrophils % 71.8 %; Nucleated Red Blood Cells % 0 %; Platelet Count 356 10^3/cmm (157-399); Red Cell Distribution Width 13.2 % (12.1-15.1); White Blood Count 7.65 10^3/uL (3.29-11.43)
--- NOTE | 2023-04-28 15:36 | W.ED.CHESTPA ---
HPI - Chest Pain General: Chief Complaint: Chest Pain Stated Complaint: chest pain Time Seen by Provider: 04/28/23 15:24 History of Present Illness: 72-year-old male patient comes in today with chest pain. Patient reports for about 4 to 5 days he has had some upper abdominal pain which she relates to gas pain. Patient reports today he had some midepigastric sternal discomfort which he was concerned may be heart related which prompted him to come to the ER. Patient reports malaise and some chills. Patient has a history of high blood pressure. Patient has been diagnosed with diabetes in the past but has good control with diet. Patient has been using Gas-X and Mucinex at home for symptoms. Patient has had a appendectomy and hernia repair in the past. Patient appears nontoxic. Patient appears in no pain. Associated symptoms: Reports abdominal pain Review of Systems General: Reports: 10 or more systems reviewed and unremarkable except in HPI and below GI: Reports: abdominal pain PFSH ED PFSH: Medical History BPH (benign prostatic hyperplasia) Erectile dysfunction due to diseases classified elsewhere Hypertension Osteoarthritis of right knee Type 2 diabetes mellitus Surgical History H/O carpal tunnel repair H/O hernia repair H/O knee surgery S/P appendectomy S/P routine circumcision Family History Family/Other Hypertension Psychiatric illness Mother , 93 No problems noted. Social History Smoking and tobacco/nicotine status: unknown if used tobacco/nicotine Alcohol intake: former Substance/Drug Use: never Marital status: Single Current occupational status: retired Physical Exam Const: COMMON NORMALS: alert HENMT: COMMON NORMALS: normocephalic HEAD & SCALP: normocephalic Neck/C-Spine: COMMON NORMALS: full ROM Resp: COMMON NORMALS: normal respiratory effort and clear to auscultation bilaterally AUSCULTATION: clear to auscultation bilaterally Cardio: COMMON NORMALS: regular rate and regular rhythm RATE: regular rate RHYTHM: regular rhythm GI: AUSCULTATION: Yes normoactive bowel sounds : COMMON NORMALS: Yes no CVA tenderness BLADDER/KIDNEY EXAM: Yes no CVA tenderness Back/Pelvis: COMMON NORMALS: no CVA tenderness Extremity: NARRATIVE EXTREMITY EXAM: Bilateral chronic edema Neuro: SENSORIUM/ORIENTATION: Yes alert Skin: COMMON NORMALS: turgor normal GENERAL SKIN EXAM: turgor normal Course Vital Signs: Vital signs: Vital Signs Temperature 97 F L 04/28/23 14:42 Pulse Rate 65 04/28/23 17:33 Respiratory Rate 16 04/28/23 17:33 Blood Pressure 162/70 04/28/23 17:33 Pulse Oximetry 94 04/28/23 17:33 Oxygen Delivery Me thod Room Air 04/28/23 14:42 MDM - Chest Pain Medical Decision Making Patient comes in today for complaints of upper abdominal pain x 4 to 5 days with some chest discomfort starting this morning. Patient appears nontoxic. Patient appears in no pain. Abdomen is soft with some epigastric tenderness. No chest wall pain. Vital signs are normal except for elevated blood pressure. Differential diagnosis includes ACS, gastritis, pancreatitis, gallbladder disease, constipation, viral syndrome. CBC and CMP were normal except for some mild elevation in glucose at 129 and low sodium at 135. Patient was given 500 mL bolus, a dose of pantoprazole IV for gastritis, and 1 hydrocodone for abdominal discomfort. Patient felt more improved. Baseline and 2-hour troponin were insignificant. Recommend patient follow-up with primary care within 1 week for recheck of blood pressure and possible further evaluation for heart disease. Patient stated understanding of care plan need for follow-up or return to ER for worsening symptoms. Lab Data 04/28/23 15:07 04/28/23 15:07 Radiology Impressions Chest X-Ray 04/28/23 14:45 IMPRESSION: No acute findings. Laboratory Results WBC 7.65 10^3/uL (3.29-11.43) 04/28/23 15:07 RBC 4.00 10^6/uL (3.85-5.65) 04/28/23 15:07 Hgb 13.00 g/dL (11.27-16.99) 04/28/23 15:07 Hct 38.3 % (37-53) 04/28/23 15:07 MCV 95.8 fl (82-101) 04/28/23 15:07 MCH 32.5 pg (27-33) 04/28/23 15:07 MCHC 33.9 g/dL (30-55) 04/28/23 15:07 RDW 13.2 % (12.1-15.1) 04/28/23 15:07 Plt Count 356 10^3/cmm (157-399) 04/28/23 15:07 MPV 8.4 fL (7.4-10.4) 04/28/23 15:07 Neut % (Auto) 71.8 % 04/28/23 15:07 Lymph % (Auto) 19.7 % 04/28/23 15:07 [place] % (Auto) 6.7 % 04/28/23 15:07 Eos % (Auto) 1.0 % 04/28/23 15:07 Baso % (Auto) 0.5 % 04/28/23 15:07 Neut # (Auto) 5.49 10^3/uL (1.8-7.7) 04/28/23 15:07 Lymph # (Auto) 1.5 10^3/uL (0.8-4.8) 04/28/23 15:07 [place] # (Auto) 0.5 10^3/uL (0.2-0.9) 04/28/23 15:07 Eos # (Auto) 0.1 10^3/uL (0.0-0.8) 04/28/23 15:07 Baso # (Auto) 0.0 10^3/uL (0.0-0.1) 04/28/23 15:07 Nucleated RBC % (auto) 0 % 04/28/23 15:07 Nucleated RBCs # 0.0 /100WBC 04/28/23 15:07 Sodium 135 mmol/L (136-145) L 04/28/23 15:07 Potassium 3.5 mmol/L (3.5-5.1) 04/28/23 15:07 Chloride 96 mmol/L (98-107) L 04/28/23 15:07 Carbon Dioxide 28 mmol/L (22-29) 04/28/23 15:07 Anion Gap 14.5 (5-19) 04/28/23 15:07 BUN 10 mg/dL (8-23) 04/28/23 15:07 Creatinine 0.7 mg/dL (0.7-1.2) 04/28/23 15:07 GFR Calculation 111.5 mL/min (90-130) 04/28/23 15:07 Glucose 129 mg/dL (65-115) H 04/28/23 15:07 Calculated Osmolality 281 mOsm/kg (285-295) L 04/28/23 15:07 Calcium 9.5 mg/dL (8.5-10.5) 04/28/23 15:07 Total Bilirubin 0.8 mg/dL (0.15-1.2) 04/28/23 15:07 AST 21 U/L (0-40) 04/28/23 15:07 ALT 25 U/L (0-41) 04/28/23 15:07 Alkaline Phosphatase 63 U/L (40-130) 04/28/23 15:07 Troponin T Baseline 27 ng/L (0-15) H 04/28/23 15:07 Troponin T 120 Minute 12.92 ng/L (0-15) 04/28/23 17:20 Delta Troponin T -14.08 ABS# (0-10) L 04/28/23 17:20 Total Protein 7.4 g/dL (6.6-8.7) 04/28/23 15:07 Albumin 4.6 g/dL (3.5-5.2) 04/28/23 15:07 Globulin 2.8 g/dL (1.3-4.6) 04/28/23 15:07 Lipase 34 U/L (13-60) 04/28/23 15:07 Urine Color Yellow (Yellow) 04/28/23 17:00 Urine Appearance Clear (CLEAR) 04/28/23 17:00 Urine pH 7 (5-7) 04/28/23 17:00 Ur Specific [place] 1.010 (1.005-1.030) 04/28/23 17:00 Urine Protein Neg (Negative) 04/28/23 17:00 Urine Glucose (UA) Norm (Normal) 04/28/23 17:00 Urine Ketones Negative (Negative) 04/28/23 17:00 Urine Blood Neg (Negative) 04/28/23 17:00 Urine Nitrate Negative (Negative) 04/28/23 17:00 Urine Bilirubin Neg (Negative) 04/28/23 17:00 Urine Urobilinogen Norm mg/dL (Negative) 04/28/23 17:00 Ur Leukocyte Esterase Negative (Negative) 04/28/23 17:00 Influenza Type A Ag negative (Negative) 04/28/23 15:48 Influenza Type B Ag negative (Negative) 04/28/23 15:48 SARS-CoV-2 Ag (Rapid) Negative (Negative) 04/28/23 15:48 All radiology interpretation(s) finalized by discharge EKG Data EKG 2: I personally reviewed and interpreted this EKG as follows: EKG interpretation date: 04/28/23 EKG interpretation time: 16:35 Prior EKG tracings: available for review Interpretation: EKG shows a sinus bradycardia with a regular rate at [address] elevation or ectopy is noted. No significant change from prior exam 2 hours ago. Discharge Plan Discharge Patient Disposition: Home Clinical Impression: Gastritis Qualifiers: Gastritis type: unspecified gastritis Chronicity: unspecified Gastritis bleeding: without bleeding Qualified Code(s): K29.70 - Gastritis, unspecified, without bleeding Condition: Stable Prescriptions: No Action Lactase Fast Acting 9,000 unit tablet,chewable 9,000 unit PO TID Rx Instructions: administer with meals and/or snacks (DME) wrist splint See Rx Instructions .Route .MEDSUPPLY Qty: 2 0RF Rx Instructions: As directed one for left and one for right pantoprazole 40 mg Tablet,Delayed Release (Dr/Ec) 40 mg PO QAM losartan 100 mg Tablet 100 mg PO QAM rosuvastatin [Crestor] 10 mg Tablet 10 mg PO QAM Probiotic Blend 2 billion cell-50 mg Capsule 1 cap PO QAM Rx Instructions: give with meal/snack amlodipine 10 mg tablet 10 mg PO DAILY furosemide 20 mg tablet 20 mg PO DAILY PRN (Reason: Edema) carvedilol 25 mg tablet 25 mg PO BID Discharge Orders: Discharge ED (Routine); Ordered 04/28/23 Ordered By: All King Referrals: Usama Melgoza MD [Primary Care Provider] - Discharge Diet: Advance as tolerated Discharge Activity: Increase activity as tolerated Patient Instructions: Gastritis (ED) Activity Restrictions/Additional Instructions: Take pantoprazole as directed. Drink plenty of water and fluids. Follow-up with primary care in 2 to 3 days for recheck. Return to ED for worsening symptoms such as blood in vomit or stool, fever greater than 100.4, severe chest pain or new concerns Coding Level of Care Code ED [employer] for [place]
[2023-04-28 15:39] LABS: Troponin(5th) Baseline 27 ng/L (0-15)
[2023-04-28 15:48] LABS: Alanine Aminotransferase 25 U/L (0-41); Albumin Level 4.6 g/dL (3.5-5.2); Alkaline Phosphatase 63 U/L (40-130); Aspartate Amino Transferase 21 U/L (0-40); Blood Urea Nitrogen 10 mg/dL (8-23); Calcium 9.5 mg/dL (8.5-10.5); Carbon Dioxide 28 mmol/L (22-29); Chloride 96 mmol/L (98-107); Globulin 2.8 g/dL (1.3-4.6); Glomerular Filtration Rate 111.5 mL/min (90-130); Glucose 129 mg/dL (65-115); Lipase 34 U/L (13-60); Osmolality Calculated 281 mOsm/kg (285-295); Sodium 135 mmol/L (136-145); Total Bilirubin 0.8 mg/dL (0.15-1.2); Total Protein 7.4 g/dL (6.6-8.7)
[2023-04-28 15:50] LABS: Anion Gap 14.5 (5-19); Potassium 3.5 mmol/L (3.5-5.1)
[2023-04-28 16:11] LABS: Influenza A by IFA negative (Negative); Influenza B by IFA negative (Negative)
--- NOTE | 2023-04-28 16:26 | ECG_ITS ---
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 [id number]
[2023-04-28 16:45] LABS: SARS Covid-2 Antigen Negative (Negative)
[2023-04-28 17:33] VITALS: BP 162/70; PULSE 65; RESP 16; O2SAT 94
[2023-04-28 17:45] LABS: Add Urine Microscopic? NO; Charge for UA Resulting for Rev
[2023-04-28 17:53] LABS: Bilirubin Urine Neg (Negative); Blood Urine Neg (Negative); Glucose Urine UA Norm (Normal); Ketones Urine Negative (Negative); Leukocyte Esterase Urine Negative (Negative); Nitrate Urine Negative (Negative); Protein Urine Neg (Negative); Urine Appearance Clear (CLEAR); Urine Color Yellow (Yellow); Urobilinogen Urine Norm (Negative); pH Urine 7 (5-7)
[2023-04-28 18:07] LABS: Troponin 5 2HR 12.92 ng/L (0-15)
[2023-04-28] MEDS: pantoprazole 40 mg SDV IVP (18:19)
[2023-04-28] MEDS: sodium chloride 0.9% 500 ML 999 ML IV (18:19)
[2023-04-28] MEDS: HYDROcodone-acetaminophen 5-325 mg Tablet 1 TAB PO (18:19)
[2023-04-28 18:59] VITALS: BP 161/78; PULSE 65; RESP 28; O2SAT 95
== END 2023-04-28 19:14 | disposition home or self-care (01) ==
PROVIDERS: Emergency Provider Nurse Practitioner Family; PCP Family Medicine
DX: K29.70 Gastritis, unspecified, without bleeding (principal); Z11.52 Encounter for screening for COVID-19; I10 Essential (primary) hypertension; E11.9 Type 2 diabetes mellitus without complications
CPT/HCPCS: 36415; 71045; 80053; 81003; 83690; 84484; 85025; 87426; 87804; 93005; 96361; 96374; 99285; C9113; J7040

== ENCOUNTER 2023-06-16 09:44 | Outpatient (CLI) | payer MEDICARE, SELFPAY ==
--- NOTE | 2023-06-16 10:18 | CT_ITS ---
WS: [id number] CT ABDOMEN AND PELVIS NONCONTRAST HISTORY: ABDOMINAL PAIN, LLQ TECHNIQUE: Imaging performed through the abdomen and pelvis. Coronal and sagittal reformats are submi tted. All CT scans at [facility] use at least one of these dose optimization techniques: auto mated exposure control; mA and/or kV adjustment per patient size (includes targeted exams where dose is matched to clinical indication); or iterative reconstruction. DLP: 913.36 mGy.cm COMPARISON: 06/13/2015 Lower thorax: Lung bases are clear. Visualized heart is normal. Small hiatal hernia. Liver: Mild hepatomegaly. No mass on this unenhanced exam. No bile duct dilatation. Gallbladder: Cholelithiasis without acute cholecystitis. Pancreas: Normal size and attenuation. Normal pancreatic duct. No pancreatitis or mass. Spleen: Normal. Adrenal glands: Normal. No mass. Right kidney: Normal size kidney with no mass or hydronephrosis. Left kidney: Normal size kidney. Low-attenuation well-circumscribed mass at the lower pole measures 2 .9 x 2.2 cm. Hounsfield units are low suggesting this is a cyst. Smaller cyst was identified in 2016 in the lower pole. Aorta: Moderate atherosclerotic plaque aorta. Aneurysmal dilatation to 3.3 cm of the infrarenal aorta with minimal progression since 2016. Calcified plaque at the origin of the mesenteric arteries. No free fluid, intraperitoneal air or significant lymphadenopathy. GI tract: Negative stomach. No small bowel obstruction. Prior appendectomy. No significant diverticul ar disease. There are a few scattered diverticula without acute diverticulitis. Abdominal wall: Mild diastases rectus. Pelvis: Well-distended urinary bladder. Mild increased density in the posterior LEFT bladder may be g ravel-like stones. No discrete mass. Reidentified is the low-attenuation mass in the LEFT pelvis mark uring 2.0 x 1.7 cm which was also described in 2016. Heterogeneous prostate gland with enlargement. Osseous structures: Moderate degenerative changes throughout the spine. No destructive bone lesions. IMPRESSION: 1. No GI tract obstruction. 2. No colitis or acute diverticulitis identified. Minimal descending colon diverticular disease. 3. No renal obstruction. 4. Cholelithiasis without acute cholecystitis. 5. Infrarenal abdominal aortic aneurysm 3.3 cm with mild increased since 2016. 6. Mild prostate gland enlargement and heterogeneity. 7. Prior appendectomy. 8. Lower pole LEFT renal cyst.
[2023-06-16] MEDS: iohexol 350 mg/mL 500 mL Btl (per mL) PO (11:07)
== END 2023-06-16 09:45 | disposition home or self-care (01) ==
LOC: RAD 09:45
PROVIDERS: PCP Family Medicine; Visit Provider Family Medicine
DX: K80.20 Calculus of gallbladder without cholecystitis without obstruction (principal); I71.43 Infrarenal abdominal aortic aneurysm, without rupture; N40.0 Benign prostatic hyperplasia without lower urinary tract symptoms; N28.1 Cyst of kidney, acquired; R10.32 Left lower quadrant pain
CPT/HCPCS: 74176; Q9967

== ENCOUNTER → 2023-06-17 09:40 | Outpatient (BNVA) | payer MEDICARE, SELFPAY | PROVIDERS: PCP Family Medicine; Referring Provider Family Medicine; Visit Provider Surgery | DX: K80.20 Calculus of gallbladder without cholecystitis without obstruction (principal) | CPT/HCPCS: 99204 ==

== ENCOUNTER 2023-07-13 06:30 | Day surgery (SDC) | payer MEDICARE, SELFPAY ==
[2023-07-13] VITALS (9 sets, daily range): BP systolic 112–171; BP diastolic 51–93; PULSE 70–85; RESP 16–18; TEMP 36.2–36.3; O2SAT 95–99; BMI 36.8
[2023-07-13] MEDS: sodium chloride 0.9% 1,000 ML 30 ML IV (06:59)
--- NOTE | 2023-07-13 07:06 | ANES.PREANE2 ---
Pre-Anesthetic Assessment Height/Weight: Height 1.7 m Weight 106.594 kg Temp Pulse Resp BP Pulse Ox O2 Del Method 97.4 F L 76 17 112/78 99 Room Air 07/13/23 06:50 07/13/23 06:50 07/13/23 06:50 07/13/23 06:50 07/13/23 06:50 07/13/23 06:52 Operation Date: 07/13/23 08:10 Proposed Procedures p Laparoscopic Cholecystectomy(Not Applicable) - Isidro Solis DO Familial anesthetic complications: None Was Beta Saravanan taken within 24 hours: N/A Was Clonidine taken within 24 hours: N/A Last intake: Intake Last Liquid Date 07/12/23 Last Liquid Time 22:30 Last Solid Date 07/12/23 Last Solid Time 19:30 Social No alcohol and No tobacco Exam alert, oriented x 3, clear to auscultation bilaterally and regular rate & rhythm Airway Mallampati: Class II Dentition: full Pulmonary Sleep Apnea CV/HEM Hypertension GI Gastroesophageal Reflux Disease Metabolic Diabetes Mellitus and Hyperlipidemia Anesthetic Plan ASA status: 3 Anesthesia: General Risk of > 500 ml blood loss (7ml/kg in children): No Medications/Allergies Home Medications Medication Instructions Recorded Confirmed Last Taken Type losartan 100 mg tablet 100 mg PO QAM 10/11/19 07/12/23 07/12/23 History pantoprazole 40 mg tablet,delayed 40 mg PO QAM 10/11/19 07/12/23 07/13/23 History release rosuvastatin 10 mg tablet (Crestor) 10 mg PO QAM 10/11/19 07/12/23 07/12/23 History lactase 9,000 unit chewable tablet 9,000 unit PO TID 01/16/20 07/12/23 07/12/23 History (Lactase Fast Acting) wrist splint #2 ea 11/27/20 06/17/23 Unknown Rx carvedilol 25 mg tablet 25 mg PO BID 06/24/21 07/12/23 07/13/23 History L.acidophil-L.casei-B.bifid-B.longum-FOS 1 cap PO QAM 09/28/22 07/12/23 07/12/23 History 2 billion cell-50 mg capsule (Probiotic Blend) amlodipine 10 mg tablet 10 mg PO DAILY 04/28/23 07/12/23 07/13/23 History furosemide 20 mg tablet 20 mg PO DAILY PRN Edema 04/28/23 07/12/23 06/28/23 History sucralfate 1 gram tablet 07/12/23 Unknown History sucralfate 1 gram tablet 1 g PO DAILY 07/12/23 07/12/23 07/12/23 History Allergies Allergy/AdvReac Type Severity Reaction Status Date / Time Sulfa (Sulfonamide Allergy NA Verified 06/17/23 09:48 Antibiotics) prednisone AdvReac ADR-Anxiety Verified 06/17/23 09:48 [facility] Anesthesia Medical History Osteoarthritis of right knee Hypertension BPH (benign prostatic hyperplasia) Type 2 diabetes mellitus Erectile dysfunction due to diseases classified elsewhere Surgical History S/P appendectomy S/P routine circumcision H/O hernia repair H/O knee surgery H/O carpal tunnel repair Family History Family/Other Hypertension Psychiatric illness Mother , 93 No problems noted. Social History Smoking and tobacco/nicotine status: former use of tobacco/nicotine Alcohol intake: former Substance/Drug Use: never Marital status: Single Current occupational status: retired Data Anesthesia Cardiac Studies: Echocardiogram Ultrasound 02/09/20
[2023-07-13 07:45] LABS: Alanine Aminotransferase 36 U/L (0-41); Albumin Level 3.9 g/dL (3.5-5.2); Alkaline Phosphatase 58 U/L (40-130); Anion Gap 14.1 (5-19); Aspartate Amino Transferase 19 U/L (0-40); Blood Urea Nitrogen 6 mg/dL (8-23); Calcium 8.2 mg/dL (8.5-10.5); Carbon Dioxide 28 mmol/L (22-29); Chloride 98 mmol/L (98-107); Creatinine Clr Calc Pharmacy 100.0144; Glomerular Filtration Rate 111.5 mL/min (90-130); Glucose 129 mg/dL (65-115); Osmolality Calculated 283 mOsm/kg (285-295); Potassium 3.1 mmol/L (3.5-5.1); Sodium 137 mmol/L (136-145); Total Protein 6.9 g/dL (6.6-8.7)
--- NOTE | 2023-07-13 08:36 | W.PM.OPSUD ---
Surgery/Procedure H&P Update DATE OF PROCEDURE: July 13, 2023 DATE H&P PERFORMED: 06/17/23 H&P UPDATE INFORMATION: I have reviewed H&P completed within last 30 days, I have examined patient prior to procedure and No changes to prior documentation PLANNED PROCEDURE: Operation Date: 07/13/23 08:10 Proposed Procedures p Laparoscopic Cholecystectomy(Not Applicable) - Isidro Solis DO
[2023-07-13] MEDS: ceFAZolin 2,000 MG in sodium chloride 0.9% (plus) 50 ML 100 MG IV (08:47)
[2023-07-13] MEDS: lidocaine-epi 2% PF 1:200,000 20 mL SDV XX (09:09)
--- NOTE | 2023-07-13 09:40 | P.OP_ITS ---
Operative Report Date of procedure: July 13, 2023 Surgeon: Isidro Solis DO Brief History: Very pleasant 72-year-old gentleman who presented my office with symptomatic cholelithiasis. Laparoscopic cholecystectomy was indicated. The risk and benefits were explained and documented. Procedure: Preoperative diagnosis: Symptomatic cholelithiasis Postoperative diagnosis: Same Procedure performed: Laparoscopic cholecystectomy Surgeon: Dr. Isidro Solis DO Estimated blood loss: 5 mL Specimens: Gallbladder to pathology Complications: None apparent Description of procedure: Patient was wheeled into the operative room and placed on the OR table in a supine position. Abdomen was inspected prepped and draped in usual sterile fashion. Time-out was performed and all present were in agreement. A 15 blade scalp was used to make a stab incision in the left upper quadrant and intra- abdominal insufflation was achieved using a Veress needle. After localizing the tissue incisions were made and a 5 millimeter trocar was placed into the umbilicus as well as 2 in the right upper quadrant. A 12 millimeter trocar was placed in the epigastrium. Gallbladder was grasped and elevated. The triangle of Calot was carefully dissected using blunt dissection and electrocautery until the triangle of Calot clearly identified. The cystic duct was clipped proximally and double clipped distally. The duct was then ligated proximally. The cystic artery was doubly clipped and ligated. The gallbladder was then removed from the liver bed using electrocautery. The gallbladder was removed from the abdomen using an Endo-Catch bag through the epigastric incision. The liver bed was inspected and no bleeding was seen. The abdomen was irrigated and suctioned. All ports removed. Skin was washed and dried. Incisions were closed with 4-0 Monocryl in a subcuticular interrupted fashion. Skin glue was applied. Patient tolerated the procedure well.
[2023-07-13] MEDS: HYDROcodone-acetaminophen 7.5-325 mg Tablet 1 TAB PO (10:42)
--- NOTE | 2023-07-13 11:05 | ANE.PACU2 ---
Inpatient post-anesthesia follow up: Airway intact: Yes Vital signs: Temperature 97.1 F Pulse Rate 70 Respiratory Rate 18 Blood Pressure 138/78 Pulse Oximetry 96 Oxygen Delivery Me thod Room Air Oxygen Flow Rate 4 Fraction of Inspir ed Oxygen Hydration adequate: Yes Nausea and vomiting: No Pain level: 1 Mental status: Baseline
== END 2023-07-13 11:05 | disposition home or self-care (01) ==
PROVIDERS: PCP Family Medicine; Visit Provider Surgery
PROC: 0FT44ZZ Resection of Gallbladder, Percutaneous Endoscopic Approach (ICD-10-PCS; CPT 47562; principal; 2023-07-13 08:10)
DX: K80.10 Calculus of gallbladder with chronic cholecystitis without obstruction (principal); G47.30 Sleep apnea, unspecified; E11.9 Type 2 diabetes mellitus without complications; E78.5 Hyperlipidemia, unspecified; I10 Essential (primary) hypertension; N40.0 Benign prostatic hyperplasia without lower urinary tract symptoms; Z87.891 Personal history of nicotine dependence
CPT/HCPCS: 47562; 80053; 88304; J0131; J0330; J0690; J1100; J1885; J2405; J2704; J3010; J3490; J7030

== ENCOUNTER → 2023-07-29 08:50 | Outpatient (BNVA) | payer MEDICARE, SELFPAY | PROVIDERS: PCP Family Medicine; Visit Provider Surgery | DX: R19.8 Other specified symptoms and signs involving the digestive system and abdomen (principal); A63.0 Anogenital (venereal) warts; G43.909 Migraine, unspecified, not intractable, without status migrainosus; Z90.49 Acquired absence of other specified parts of digestive tract | CPT/HCPCS: 99214 ==

== ENCOUNTER 2024-07-10 09:14 | Emergency (ER) | payer MEDICARE, SELFPAY ==
[2024-07-10 09:23] VITALS: BP 71/49; PULSE 89; RESP 25; TEMP 36.4; O2SAT 77
--- NOTE | 2024-07-10 09:30 | ECG_ITS ---
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 Measurements Intervals [place] Rate: 90 P: 56 IA: 165 QRS: 104 QRSD: 122 T: 59 QT: 373 QTc: 458 Interpretive Statements SINUS RHYTHM RIGHT AXIS DEVIATION [QRS AXIS > 100] MODERATE INTRAVENTRICULAR CONDUCTION DELAY [110+ ms QRS DURATION] ST DEVIATION AND MODERATE T-WAVE ABNORMALITY, CONSIDER ANTEROLATERAL ISCHEMIA [-0.1+ mV T-WAVE IN V3-V6] Compared to ECG 04/28/2023 16:26:32 Right-axis deviation now present Intraventricular conduction delay now present T-wave abnormality now present Possible ischemia now present Sinus bradycardia no longer present Electronically Signed On 07-10-2024 16:40:37 CDT by Jan Jensen M.D. [id number]
--- NOTE | 2024-07-10 09:34 | XRR_ITS ---
PROCEDURE INFORMATION: Exam: XR Chest Exam date and time: 07/10/2024 9:44 AM Age: 73 years old Clinical indication: Cough and dyspnea; Additional info: Dyspnea/cough TECHNIQUE: Imaging protocol: Radiologic exam of the chest. Views: 1 view. COMPARISON: CR XR chest 1V portable [id number] 04/28/2023 3:03 PM FINDINGS: Lungs: There may be patchy infiltrate or atelectasis involving the left mid lung underlying the cardiac lead. Lungs are otherwise clear. Pleural spaces: Unremarkable. No pleural effusion. No pneumothorax. Heart/Mediastinum: The heart is slightly enlarged. There is calcified plaque involving the aorta. Bones/joints: Unremarkable. XR/XR chest 1V portable [id number] IMPRESSION: 1. Mild cardiomegaly. 2. Possible patchy infiltrate or atelectasis involving the left mid lung
--- NOTE | 2024-07-10 09:45 | CTR_ITS ---
PROCEDURE INFORMATION: Exam: CTA Chest With Contrast Exam date and time: 07/10/2024 11:40 AM Age: 73 years old Clinical indication: Dyspnea TECHNIQUE: Imaging protocol: Computed tomographic angiography of the chest with contrast. Exam focused on the arteries. 3D rendering (Not supervised by radiologist): MIP and/or 3D reconstructed images were created by the technologist. Radiation optimization: All CT scans at this facility use at least one of these dose optimization techniques: automated exposure control; mA and/or kV adjustment per patient size (includes targeted exams where dose is matched to clinical indication); or iterative reconstruction. Contrast material: OMNI 350; Contrast volume: 94 ml; Contrast route: INTRAVENOUS (IV); COMPARISON: CR XR chest 1V portable [id number] 07/10/2024 9:44 AM RADIATION DOSE METRICS: Total DLP (mGy-cm): 614.95 FINDINGS: Pulmonary arteries: There are bilateral pulmonary emboli within the main pulmonary arteries bilaterally extending into the upper, lower and right middle lobe pulmonary arteries on the right as well as the upper and lower lobe branches on the left. No saddle embolus is appreciated. The RV/LV ratio is 2.65 suggesting right heart strain. Aorta: The thoracic aorta is normal in caliber without aneurysm or dissection. There is calcified plaque involving the aorta and coronary vessels. Lungs: There is airspace disease involving the left upper lobe. This could be inflammatory or could be related to pulmonary infarct. Pleural spaces: There are trace pleural effusions. Heart: Heart size is normal. There is a small pericardial effusion. Lymph nodes: There are a few small mediastinal and hilar lymph nodes. No enlarged nodes are appreciated. Diaphragm: There is a small hiatal hernia. Liver: There is diffuse fatty infiltration of the liver. The liver is otherwise normal. Gallbladder and biliary ducts: There are surgical clips within the gallbladder fossa. Bones/joints: Unremarkable. No acute fracture. Soft tissues: Unremarkable. CT/CT angio chest PE protcl [id number] IMPRESSION: 1. Bilateral pulmonary emboli with right heart strain (RV/LV ratio 2.65. 2. Trace pleural effusions. 3. Left upper lobe airspace disease.
--- NOTE | 2024-07-10 09:45 | W.ED.SOB ---
HPI - SOB/Dyspnea General: Chief Complaint: Shortness of Breath/Dyspnea Stated Complaint: Sob Time Seen by Provider: 07/10/24 09:23 History of Present Illness: HPI Narrative: 73-year-old male presents emergency room sudden onset of shortness of breath last night progressively worsened through the night when he arrived here in triage she was satting 70%. When I see him we transitioned to 6 L by nasal cannula and he is maintaining sats just above 90%. He denies any chest pain. He has not had any productive cough no fever sweats or chills no vomiting. He does have some diarrhea. No history of coronary artery disease no history of chronic respiratory illnesses. Patient is a remote smoker quit a little over 30 years ago. Associated symptoms: Deny abdominal pain, chest pain or fever(s) Related Data Home Medications ?Medication ?Instructions ?Recorded ?Confirmed losartan 100 mg tablet 100 mg PO QAM 10/11/19 07/10/24 pantoprazole 40 mg tablet,delayed 40 mg PO QAM 10/11/19 07/10/24 release rosuvastatin 10 mg tablet (Crestor) 10 mg PO QAM 10/11/19 07/10/24 carvedilol 25 mg tablet 25 mg PO BID 06/24/21 07/10/24 L.acidophil-L.casei-B.bifid-B.longum-FOS 1 cap PO QAM 09/28/22 07/10/24 2 billion cell-50 mg capsule (Probiotic Blend) amlodipine 10 mg tablet 10 mg PO DAILY 04/28/23 07/10/24 furosemide 20 mg tablet 20 mg PO DAILY PRN Edema 04/28/23 07/10/24 cyanocobalamin (B12)-cobamamide 1 cinthia sublingual DAILY 07/10/24 07/10/24 5,000 mcg-100 mcg sublingual lozenge (B12) magnesium 250 mg tablet 250 mg PO DAILY 07/10/24 07/10/24 multivitamin with minerals 1 tab PO DAILY 07/10/24 07/10/24 Previous Rx's ?Medication ?Instructions ?Recorded docusate sodium 100 mg capsule 100 mg PO BID #14 caps 07/13/23 (Colace) Allergies Allergy/AdvReac Type Severity Reaction Status Date / Time Sulfa (Sulfonamide Allergy NA Verified 07/10/24 09:43 Antibiotics) prednisone AdvReac ADR-Anxiety Verified 07/10/24 09:43 Review of Systems Const: Denies: fever(s) or chills Card: Denies: chest pain Resp: Reports: dyspnea and non-productive cough GI: Denies: abdominal pain : Denies: dysuria, urinary frequency or urinary urgency Musc: Denies: neck pain or back pain Skin/Breast: Denies: rash PFSH ED PFSH: Medical History Osteoarthritis of right knee Hypertension BPH (benign prostatic hyperplasia) Type 2 diabetes mellitus Erectile dysfunction due to diseases classified elsewhere Surgical History Hx laparoscopic cholecystectomy 07/13/23 Dr Solis S/P appendectomy S/P routine circumcision H/O hernia repair H/O knee surgery H/O carpal tunnel repair Family History Family/Other Hypertension Psychiatric illness Mother , 93 No problems noted. Social History Smoking and tobacco/nicotine status: former use of tobacco/nicotine Alcohol intake: former Substance/Drug Use: never Marital status: Single Current occupational status: retired Physical Exam Const: COMMON NORMALS: no acute distress GENERAL APPEARANCE: cooperative and comfortable ORIENTATION/CONSCIOUSNESS: Yes awake, Yes oriented to person, Yes oriented to place and Yes oriented to time HENMT: COMMON NORMALS: normocephalic, atraumatic and hearing grossly normal bilaterally HEAD & SCALP: normocephalic and atraumatic Resp: COMMON NORMALS: normal respiratory effort, No retractions, No use of accessory muscles and clear to auscultation bilaterally EFFORT & INSPECTION: Yes tachypneic AUSCULTATION: clear to auscultation bilaterally Cardio: COMMON NORMALS: regular rate, regular rhythm and No murmurs present (Cardio) RATE: regular rate RHYTHM: regular rhythm GI: COMMON NORMALS: Soft to palpation and No hepatosplenomegaly present AUSCULTATION: Yes normoactive bowel sounds PALPATION: Yes Soft to palpation, No Tenderness to palpation present (GI), No Guarding due to palpation present (GI) and Yes No hepatosplenomegaly present Extremity: COMMON NORMALS: normal to inspection, capillary refill normal, no clubbing, cyanosis or edema, no calf tenderness and no pedal edema Neuro: SENSORIUM/ORIENTATION: Yes oriented to person, Yes oriented to place and Yes oriented to time Course Vital Signs: Vital signs: Vital Signs Temperature 97.5 F L 07/10/24 09:23 Pulse Rate 75 07/10/24 13:17 Respiratory Rate 16 07/10/24 12:11 Blood Pressure 91/61 07/10/24 13:17 Pulse Oximetry 95 07/10/24 13:17 Oxygen Delivery Me thod BiPAP 07/10/24 12:56 Fraction of Inspir ed Oxygen 40 07/10/24 11:56 MDM - SOB/Dyspnea Medical Decision Making Sudden onset of severe shortness of breath with hypoxia. Lungs were clear on exam strong suspicion for PE which was borne out by the CT. He has signs of right heart strain on his EKG as well. There is mild troponin elevation elevation of his BNP. Fairly large clot burden on his CTA of his chest we will transfer to [facility] for possible intervention. Initially because of his presentation elevated white count elevated lactate he was treated as if he may have sepsis given fluid bolus and also given IV antibiotics. Heparin bolus in place patient blood pressure decreased transiently then improved to 90s over 60 prior to discharge. Due to availability of ambulance as an urgency of patient's condition he is sent by air ambulance. Medical Records I reviewed the patient's medical records. Lab Data I reviewed the patient's lab results. 07/10/24 09:40 07/10/24 09:40 Labs/Radiology: Radiology Impressions Chest X-Ray 07/10/24 09:34 IMPRESSION: 1. Mild cardiomegaly. 2. Possible patchy infiltrate or atelectasis involving the left mid lung Chest CTA 07/10/24 09:45 IMPRESSION: 1. Bilateral pulmonary emboli with right heart strain (RV/LV ratio 2.65. 2. Trace pleural effusions. 3. Left upper lobe airspace disease. ADDENDUM: 07/10/24 1204 COMMENT: THIS REPORT CONTAINS FINDINGS THAT MAY BE CRITICAL TO PATIENT CARE. The exam findings were verbally communicated by me to PHILIP TEJADA via telephone conference at 12:02 PM CDT on 07/10/2024. The findings were acknowledged and understood. Laboratory Results WBC 18.59 10^3/uL (3.29-11.43) H 07/10/24 09:40 RBC 4.33 10^6/uL (3.85-5.65) 07/10/24 09:40 Hgb 14.00 g/dL (11.27-16.99) 07/10/24 09:40 Hct 42.6 % (37-53) 07/10/24 09:40 MCV 98.4 fl (82-101) 07/10/24 09:40 MCH 32.3 pg (27-33) 07/10/24 09:40 MCHC 32.9 g/dL (30-55) 07/10/24 09:40 RDW 12.8 % (12.1-15.1) 07/10/24 09:40 Plt Count 297 10^3/cmm (157-399) 07/10/24 09:40 MPV 8.9 fL (7.4-10.4) 07/10/24 09:40 Neut % (Auto) 86.6 % 07/10/24 09:40 Lymph % (Auto) 6.6 % 07/10/24 09:40 Banner % (Auto) 5.5 % 07/10/24 09:40 Eos % (Auto) 0.3 % 07/10/24 09:40 Baso % (Auto) 0.3 % 07/10/24 09:40 Neut # (Auto) 16.10 10^3/uL (1.8-7.7) H 07/10/24 09:40 Lymph # (Auto) 1.2 10^3/uL (0.8-4.8) 07/10/24 09:40 Banner # (Auto) 1.0 10^3/uL (0.2-0.9) H 07/10/24 09:40 Eos # (Auto) 0.1 10^3/uL (0.0-0.8) 07/10/24 09:40 Baso # (Auto) 0.1 10^3/uL (0.0-0.1) 07/10/24 09:40 Nucleated RBC % (auto) 0.1 % 07/10/24 09:40 Nucleated RBCs # 0.0 /100WBC 07/10/24 09:40 Specimen Type Arterial 07/10/24 09:59 Sample Site Radial, right 07/10/24 09:59 ABG pH 7.46 (7.35-7.45) H 07/10/24 09:59 ABG pCO2 27.9 mmHg (35-45) L 07/10/24 09:59 ABG pO2 57.2 mmHg (80.0-100.0) L 07/10/24 09:59 ABG PO2/FiO2 Ratio 127 07/10/24 09:59 ABG HCO3 20.0 mmol/L (22-26) L 07/10/24 09:59 ABG O2 Saturation 90.3 07/10/24 09:59 ABG Base Excess -2.2 mmol/L (-2.0-2.0) L 07/10/24 09:59 Dariel Test Pos 07/10/24 09:59 A-a O2 Gradient 29.7 mmHg (5-10) H 07/10/24 09:59 Hematocrit 47.0 % (42-52) 07/10/24 09:59 Hgb O2 Saturation 89.1 % (95-100) L 07/10/24 09:59 Carboxyhemoglobin 1.1 %THgb (0.4-20.1) 07/10/24 09:59 Methemoglobin 0.1 % (0.4-1.5) L 07/10/24 09:59 Total Hemoglobin 15.3 g/dL (14-18) 07/10/24 09:59 Sodium 133.0 mmol/L (131-143) 07/10/24 09:59 Potassium 3.3 mmol/L (3.5-5.0) L 07/10/24 09:59 Glucose 177.0 mg/dL (70-115) H 07/10/24 09:59 Ionized Calcium 1.1 mmol/L (1.1-1.4) 07/10/24 09:59 O2 Delivery Device Nc 07/10/24 09:59 O2 Liters/Min 6.0 % 07/10/24 09:59 FiO2 45.0 % 07/10/24 09:59 Database Operator ID glc 07/10/24 09:59 Sodium 132 mmol/L (136-145) L 07/10/24 09:40 Potassium 3.9 mmol/L (3.5-5.1) 07/10/24 09:40 Chloride 96 mmol/L (98-107) L 07/10/24 09:40 Carbon Dioxide 20 mmol/L (22-29) L 07/10/24 09:40 Anion Gap 19.9 (5-19) H 07/10/24 09:40 BUN 10 mg/dL (8-23) 07/10/24 09:40 Creatinine 1.0 mg/dL (0.7-1.2) 07/10/24 09:40 GFR Calculation Not Reportable 07/10/24 09:40 Glucose 174 mg/dL (65-115) H 07/10/24 09:40 Calculated Osmolality 277 mOsm/kg (285-295) L 07/10/24 09:40 Lactic Acid 3.3 mmol/L (0.5-2.2) H 07/10/24 09:40 Lactic Acid (Sepsis) 1.8 mmol/L (0.5-2.2) 07/10/24 12:10 Calcium 8.9 mg/dL (8.5-10.5) 07/10/24 09:40 Total Bilirubin 1.1 mg/dL (0.15-1.2) 07/10/24 09:40 AST 18 U/L (0-40) 07/10/24 09:40 ALT 23 U/L (0-41) 07/10/24 09:40 Alkaline Phosphatase 88 U/L (40-130) 07/10/24 09:40 Troponin T Baseline 99 ng/L (0-15) H 07/10/24 09:40 Troponin T 120 Minute 83.11 ng/L (0-15) H 07/10/24 12:10 Delta Troponin T -15.89 ABS# (0-10) L 07/10/24 12:10 NT-Pro-B Natriuret Pep 33090 pg/mL (0-125) H 07/10/24 09:40 Total Protein 7.5 g/dL (6.6-8.7) 07/10/24 09:40 Albumin 4.0 g/dL (3.5-5.2) 07/10/24 09:40 Globulin 3.5 g/dL (1.3-4.6) 07/10/24 09:40 Influenza A (PCR) Negative (Negative) 07/10/24 09:50 Influenza Type B (PCR) Negative (Negative) 07/10/24 09:50 RSV (PCR) Negative (Negative) 07/10/24 09:50 SARS-CoV-2 (PCR) Negative (Negative) 07/10/24 09:50 All radiology interpretation(s) finalized by discharge Critical Care Time Critical Care Time: Critical Care Time: Yes Total Critical Care Time: 35 Attestation: The high probability of a clinically significant, sudden or life threatening deterioration of the patient's cardiovascular respiratory system(s) required my full and direct attention, intervention and personal management. The critical care time is as shown. This time is in addition to time spent performing any reported procedures but includes the following: [x] Data and vital sign review and interpretation [x] Patient assessment, examination and intervention [x] Documentation [x] Medication orders and management Discharge Plan Discharge Patient Disposition: Transfer to ED Clinical Impression: Acute hypoxic respiratory failure, Pulmonary air embolism, Right heart failure Condition: Stable Prescriptions: No Action pantoprazole 40 mg Tablet,Delayed Release (Dr/Ec) 40 mg PO QAM losartan 100 mg Tablet 100 mg PO QAM rosuvastatin [Crestor] 10 mg Tablet 10 mg PO QAM Probiotic Blend 2 billion cell-50 mg Capsule 1 cap PO QAM Rx Instructions: give with meal/snack amlodipine 10 mg tablet 10 mg PO DAILY furosemide 20 mg tablet 20 mg PO DAILY PRN (Reason: Edema) docusate sodium [Colace] 100 mg capsule 100 mg PO BID Qty: 14 0RF carvedilol 25 mg tablet 25 mg PO BID magnesium 250 mg Tablet 250 mg PO DAILY Potassium Plus Tablet 1 tab PO DAILY B12 5,000-100 mcg Lozenge 1 cinthia SUBLINGUAL DAILY Referrals: Usama Melgoza MD [Primary Care Provider] - Print Language: Somali Coding Level of Care Code ED Dobby Loom Weaver for Kelly Walker
[2024-07-10 09:46] LABS: Basophils # 0.1 10^3/uL (0.0-0.1); Basophils % 0.3 %; Eosinophils # 0.1 10^3/uL (0.0-0.8); Eosinophils % 0.3 %; Hematocrit 42.6 % (37-53); Lymphocytes # 1.2 10^3/uL (0.8-4.8); Lymphocytes % 6.6 %; Mean Corpuscular HGB Conc 32.9 g/dL (30-55); Mean Corpuscular Hemoglobin 32.3 pg (27-33); Mean Corpuscular Volume 98.4 fl (82-101); Mean Platelet Volume 8.9 fL (7.4-10.4); Monocytes % 5.5 %; Neutrophils % 86.6 %; Nucleated Red Blood Cells % 0.1 %; Platelet Count 297 10^3/cmm (157-399); Red Blood Count 4.33 10^6/uL (3.85-5.65); Red Cell Distribution Width 12.8 % (12.1-15.1); White Blood Count 18.59 10^3/uL (3.29-11.43)
[2024-07-10 10:04] LABS: Troponin(5th) Baseline 99 ng/L (0-15)
[2024-07-10 10:05] LABS: Lactic Sepsis W/Reflex 3.3 mmol/L (0.5-2.2)
[2024-07-10 10:11] LABS: ABG PCO2 27.9 mmHg (35-45); ABG PH Result 7.46 (7.35-7.45); Alveolar-Arterial Oxygen Gradi 29.7 mmHg (5-10); Base Excess ABG -2.2 mmol/L (-2.0-2.0); Blood Gas Allen Test Pos; Blood Gas Operator Identificat glc; Blood Gas Sample Site Radial, right; Blood Gas Sample Type Arterial; Carboxyhemoglobin 1.1 %THgb (0.4-20.1); HGB O2 Sat 89.1 % (95-100); Ionized Calcium Level - ABG 1.1 mmol/L (1.1-1.4); Methemoglobin 0.1 % (0.4-1.5); Oxygen Device NC; Oxygen Saturation ABG 90.3; PO2 ABG 57.2 mmHg (80.0-100.0); PO2 FiO2 Ratio Arterial Blood 127; Potassium Level - ABG 3.3 mmol/L (3.5-5.0); Total Hemoglobin 15.3 g/dL (14-18)
[2024-07-10 10:14] LABS: Alanine Aminotransferase 23 U/L (0-41); Alkaline Phosphatase 88 U/L (40-130); Anion Gap 19.9 (5-19); Aspartate Amino Transferase 18 U/L (0-40); Blood Urea Nitrogen 10 mg/dL (8-23); Calcium 8.9 mg/dL (8.5-10.5); Carbon Dioxide 20 mmol/L (22-29); Chloride 96 mmol/L (98-107); Creatinine Clr Calc Pharmacy 77.3038; Globulin 3.5 g/dL (1.3-4.6); Glucose 174 mg/dL (65-115); NT Pro B Type Natriuretic Pept 11537 pg/mL (0-125); Osmolality Calculated 277 mOsm/kg (285-295); Potassium 3.9 mmol/L (3.5-5.1); Sodium 132 mmol/L (136-145); Total Bilirubin 1.1 mg/dL (0.15-1.2); Total Protein 7.5 g/dL (6.6-8.7)
[2024-07-10 10:32] LABS: Influenza A NEGATIVE (Negative); Influenza B NEGATIVE (Negative); Respiratory Syncytial Virus Ce NEGATIVE (Negative); SARS-CoV-2 PCR NEGATIVE (Negative)
[2024-07-10] MEDS: aspirin 81 mg Chew Tablet 324 MG PO (10:32)
[2024-07-10 10:38] VITALS: PULSE 81; RESP 25; O2SAT 99
--- NOTE | 2024-07-10 11:16 | ECG_ITS ---
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 Measurements Intervals [place] Rate: 75 P: 24 IL: 176 QRS: 139 QRSD: 90 T: 29 QT: 415 QTc: 464 Interpretive Statements SINUS RHYTHM Right-axis deviation diffuse T wave changes possible recent high lateral wall MA Intraventricular conduction delay no longer present persistent T wave changes Electronically Signed On 07-12-2024 08:51:10 CDT by Jan Jenesn M.D. [email or web address]
[2024-07-10 11:31] LABS: Reflex Lactate Order REFLEX LACTIC ORDERD
[2024-07-10] MEDS: ipratropium-albuterol 3 mL Neb INHALATION (11:52)
[2024-07-10 11:56] VITALS: PULSE 80; RESP 26; O2SAT 95
[2024-07-10] MEDS: iohexol 350 mg/mL 500 mL Btl (per mL) IV (12:02)
[2024-07-10 12:11] VITALS: RESP 16
[2024-07-10] MEDS: morphine 4 mg/mL SDV 1 mL 2 MG IVP (12:11)
[2024-07-10] MEDS: piperacillin-tazobactam 3.375 GM in sodium chloride 0.9% (plus) 50 ML IV (12:12)
[2024-07-10] MEDS: prochlorperazine 10 mg/2 mL Inj IVP (12:12)
[2024-07-10 12:31] LABS: Lactic Acid level (Lactate) 1.8 mmol/L (0.5-2.2)
[2024-07-10 12:34] LABS: Troponin 5 2HR 83.11 ng/L (0-15)
[2024-07-10 12:35] LABS: Troponin 5 2HR Delta -15.89 ABS# (0-10)
[2024-07-10] MEDS: heparin 5,000 unit/mL INJ 1 mL IVP (12:37)
[2024-07-10] MEDS: heparin drip 25,000 UNIT/500 ML PREMIX 29 UNIT IV (12:47)
[2024-07-10 12:56] VITALS: BP 91/61; PULSE 72; O2SAT 100
[2024-07-10 13:17] VITALS: BP 91/61; PULSE 75; O2SAT 95
== END 2024-07-10 13:18 ==
PROVIDERS: Emergency Provider Family Medicine; PCP Family Medicine
DX: J96.01 Acute respiratory failure with hypoxia (principal); T79.0XXA Air embolism (traumatic), initial encounter; I50.9 Heart failure, unspecified; Z11.52 Encounter for screening for COVID-19; Z87.891 Personal history of nicotine dependence; E11.9 Type 2 diabetes mellitus without complications; X58.XXXA Exposure to other specified factors, initial encounter
CPT/HCPCS: 36415; 36600; 71045; 71275; 80051; 80053; 82330; 82805; 83605; 83880; 84484; 85025; 87040; 87637; 93005; 94640; 94660; 96365; 96375; 99285; J0780; J1644; J2270; J2543; J7030; J9999

== ENCOUNTER 2024-08-11 14:08 | Outpatient (CLI) | payer MEDICARE, SELFPAY ==
[2024-08-11 15:03] LABS: INR 1.18 (0.8-1.2)
== END 2024-08-11 14:09 | disposition home or self-care (01) ==
PROVIDERS: PCP Family Medicine; Visit Provider Family Medicine
DX: I26.99 Other pulmonary embolism without acute cor pulmonale (principal)
CPT/HCPCS: 36415; 85610

== ENCOUNTER → 2024-11-30 13:16 | Outpatient (BNVA) | payer MEDICARE, SELFPAY | PROVIDERS: PCP Family Medicine; Referring Provider Family Medicine; Visit Provider Specialist | DX: G43.711 Chronic migraine without aura, intractable, with status migrainosus (principal) | CPT/HCPCS: 99204 ==

== ENCOUNTER 2024-12-11 19:58 | Outpatient (CLI) | payer MEDICARE, SELFPAY | END 2024-12-11 19:59 | disposition home or self-care (01) | LOC: SLEEP 20:01 | PROVIDERS: PCP Family Medicine; Referring Provider Family Medicine; Visit Provider Internal Medicine Pulmonary Disease | DX: G47.30 Sleep apnea, unspecified (principal); R09.02 Hypoxemia; G47.61 Periodic limb movement disorder | CPT/HCPCS: 95810 ==

== ENCOUNTER 2025-01-17 06:58 | Outpatient (CLI) | payer MEDICARE, SELFPAY ==
--- NOTE | 2025-01-17 07:30 | MR_ITS ---
WS: [id number] MRI HEAD WITH CONTRAST TECHNIQUE: Sagittal T1, T2 axial, T2 axial FLAIR, axial susceptibility weighted imaging, axial diffusion weighted images, and coronal T2 images were obtained. Pre and post-T1 axial and post T1 coronal images. ADC and FSPGR images. CLINICAL INFORMATION: G43.711 - Chronic migraine without aura, intractable, wit... COMPARISON: None. FINDINGS: No evidence of restricted diffusion to suggest acute ischemia. Mild small vessel changes. Mild parenchymal volume loss. Numerous tiny chronic lacunar infarcts in the cerebellum bilaterally. Normal vascular flow voids at the skull base. No extra-axial fluid collections. Mild mucosal thickening in the ethmoid air cells. Mastoid air cells are well aerated. Normal posterior nasopharynx. No hemosiderin on susceptibility-weighted images. Normal optic chiasm and pituitary infundibulum. Mild symmetric atrophy temporal lobes and hippocampal formations. No abnormal gadolinium enhancement. Orbital varicosities similar in appearance to the prior CTA. Differential considerations previously described. Normal optic chiasm and pituitary infundibulum. Meckel's cave is normal in appearance. MR/MR head wo/w con [id number] IMPRESSION: 1. No evidence of restricted diffusion to suggest acute ischemia. 2. Mild small vessel changes with mild parenchymal volume loss. 3. Tiny chronic lacunar infarcts in the cerebellum. 4. No hemosiderin on susceptibility-weighted images. 5. No abnormal gadolinium enhancement. 6. Orbital varicosities are similar in appearance compared to the prior CTA 7. No other acute findings.
--- NOTE | 2025-01-17 08:15 | MR_ITS ---
WS: [id number] MRA HEAD TECHNIQUE: Axial 3-D TOF images obtained with axial images and axial, sagittal, and coronal 2-D reformatted images. CLINICAL INFORMATION: G43.711 - Chronic migraine without aura, intractable, wit... COMPARISON: CTA 2021 FINDINGS: Basilar artery is patent. Somewhat diminutive basilar artery. Anterior dominant circulation. Persistent LEFT CRITICAL CARE TRANSPORT NURSE. Patent RIGHT posterior communicating artery. Normal vascularity to the CRITICAL CARE TRANSPORT NURSE territory bilaterally. Both ICAs are patent at the skull base. Small RIGHT A1 segment. Normal vascularity to the ROBIN and MCA territories bilaterally. No evidence of proximal flow-limiting stenosis. Previously described orbital varicosities better evaluated on the prior CTA. MR/MR angio head wo con [id number] IMPRESSION: 1. Anterior dominant circulation. 2. Persistent LEFT CRITICAL CARE TRANSPORT NURSE. 3. No evidence of proximal flow-limiting stenosis. 4. Orbital varicosities better evaluated and detailed on the prior CTA.
[2025-01-17] MEDS: gadobenate dimeglumine 20 mL vial IV (08:21)
--- NOTE | 2025-01-17 08:30 | MR_ITS ---
WS: [id number] MR venogram INDICATION: Migraine headaches TECHNIQUE: MR venogram with 2D and 3D feir-iq-bctuyu imaging FINDINGS: Normal sagittal sinus and straight sinus. Normal transverse sinuses. Internal cerebral veins are patent. Normal torcula. Sigmoid sinuses are patent. No evidence of dural sinus thrombosis. No acute findings. MR/[place] [id number] IMPRESSION: 1. No evidence of dural sinus thrombosis. 2. No other acute findings
== END 2025-01-17 06:59 | disposition home or self-care (01) ==
LOC: RAD 07:01
PROVIDERS: PCP Family Medicine; Visit Provider Specialist
DX: G43.711 Chronic migraine without aura, intractable, with status migrainosus (principal); I67.89 Other cerebrovascular disease
CPT/HCPCS: 70544; 70553

== ENCOUNTER 2025-02-27 19:51 | Outpatient (CLI) | payer MEDICARE, SELFPAY | END 2025-02-27 19:52 | disposition home or self-care (01) | LOC: SLEEP 19:53 | PROVIDERS: PCP Family Medicine; Referring Provider Family Medicine; Visit Provider Internal Medicine Pulmonary Disease | DX: G47.33 Obstructive sleep apnea (adult) (pediatric) (principal); G47.61 Periodic limb movement disorder; R40.0 Somnolence; G43.711 Chronic migraine without aura, intractable, with status migrainosus; R03.0 Elevated blood-pressure reading, without diagnosis of hypertension | CPT/HCPCS: 95811; 99214 ==